=== PATIENT | male | born 1995 | race Hispanic/Latino ===

== ENCOUNTER 2018-12-27 20:03 | Emergency (ER) | payer SELFPAY ==
[2018-12-27] MEDS ORDERED: DIAZEPAM 5 MG TABLET ONE (20:42)
[2018-12-27] MEDS ORDERED: KETOROLAC 30 MG/ML INJ ONE (20:43)
[2018-12-27] MEDS ORDERED: HYDROCODONE/APAP 10/325 TAB ONE (20:44)
--- NOTE | 2018-12-27 21:00 | RAD REPORT ---
EXAM DESCRIPTION: Manju Macdonald (2 Views)12/27/2018 8:48 pm CLINICAL HISTORY: Cough COMPARISON: 2013 FINDINGS: The lungs appear clear of acute infiltrate. The heart is normal size IMPRESSION: No acute abnormalities displayed
--- NOTE | 2018-12-27 21:23 | ER ---
Nurse's Notes [facility] Name: Charlie Elena Age: 23 yrs Sex: Male : 1995 Arrival Date: 12/27/2018 Time: 20:06 Bed 15 Private MD: Diagnosis: Muscle spasm Presentation: 12/27 20:09 Presenting complaint: Patient states: I sneezed this morning and since then I have had la1 really bad back, chest, shoulder, and neck pain. Transition of care: patient was not received from another setting of care. Onset of symptoms was December 27, 2018. Risk Assessment: Do you want to hurt yourself or someone else? Patient reports no desire to harm self or others. Initial Sepsis Screen: Does the patient meet any 2 criteria? No. Patient's initial sepsis screen is negative. Does the patient have a suspected source of infection? No. Patient's initial sepsis screen is negative. Care prior to arrival: None. 20:09 Method Of Arrival: Ambulatory la1 20:09 Acuity: MARLYS 3 la1 Historical: - Allergies: 20:10 PENICILLINS; la1 - PMHx: 20:10 Herniated disc; la1 - Immunization history:: Adult Immunizations up to date. - Social history:: Smoking status: Patient/guardian denies using tobacco. - Ebola Screening: : No symptoms or risks identified at this time. Screenin:30 Abuse screen: Denies threats or abuse. Nutritional screening: No deficits noted. jb4 Tuberculosis screening: No symptoms or risk factors identified. Fall Risk None identified. Assessment: 20:30 General: Appears in no apparent distress. uncomfortable, Behavior is calm, cooperative, jb4 appropriate for age. Pain: Complains of pain in right shoulder. Pain does not radiate. Pain currently is 8 out of 10 on a pain scale. Neuro: Level of Consciousness is awake, alert, obeys commands, Oriented to person, place, time, situation. Cardiovascular: Patient's skin is warm and dry. Respiratory: Airway is patent Respiratory effort is even, unlabored, Respiratory pattern is regular, symmetrical. GI: No signs and/or symptoms were reported involving the gastrointestinal system. : No signs and/or symptoms were reported regarding the genitourinary system. EENT: No signs and/or symptoms were reported regarding the EENT system. Derm: Skin is intact, Skin is pink, warm \T\ dry. Musculoskeletal: Circulation, motion, and sensation intact. 21:30 Reassessment: Patient appears in no apparent distress at this time. Patient is alert, jb4 oriented x 3, equal unlabored respirations, skin warm/dry/pink. Patient states feeling better. Vital Signs: 20:10 BP 137 / 94; Pulse 81; Resp 16; Temp 98.5; Pulse Ox 98% on R/A; Weight 68.04 kg; Height la1 5 ft. 7 in. (170.18 cm); 21:30 BP 124 / 72; Pulse 76; Resp 16; Pulse Ox 98% on R/A; Pain 5/10; jb4 20:10 Body Mass Index 23.49 (68.04 kg, 170.18 cm) la1 ED Course: 20:06 Patient arrived in ED. es 20:10 Triage completed. la1 20:11 Arm band placed on left wrist. la1 20:20 Ryan Edouard PA is PHCP. [facility] 20:20 Brian Cazares MD is Attending Physician. [facility] 20:28 Juan Frazier RN is Primary Nurse. jb4 20:30 Patient has correct armband on for positive identification. Bed in low position. Call jb4 light in reach. Side rails up X 1. Pulse ox on. NIBP on. 20:30 No provider procedures requiring assistance completed. Patient did not have IV access jb4 during this emergency room visit. 20:47 Chest Pa And Lat (2 Views) XRAY In Process Unspecified. EDMS Administered Medications: 20:40 Drug: Ketorolac 60 mg Route: IM; Site: right gluteus; rr5 22:07 Follow up: Response: No adverse reaction; Pain is decreased jb4 20:41 Drug: Valium 5 mg Route: PO; rr5 22:07 Follow up: Response: No adverse reaction; Pain is decreased jb4 20:42 Drug: [place] 10 mg-325 mg 1 tabs Route: PO; rr5 22:07 Follow up: Response: No adverse reaction; Pain is decreased jb4 Outcome: 21:21 Discharge ordered by . jm 21:40 Discharged to home ambulatory, with family. jb4 21:40 Condition: stable 21:40 Discharge instructions given to patient, family, Instructed on discharge instructions, follow up and referral plans. medication usage, Demonstrated understanding of instructions, follow-up care, medications, Prescriptions given X 1. 22:08 Patient left the ED. jb4 Signatures: Dispatcher [employer] EDRyan Barrett PA PA jmm Salyer, Edna es Attema, Lee RN RN la1 Juan Frazier RN RN jb4 Refugio Bansal RN RN rr5
--- NOTE | 2018-12-27 21:23 | EDPHYS ---
Physician Documentation [facility] Name: Charlie Elena Age: 23 yrs Sex: Male : 1995 Arrival Date: 12/27/2018 Time: 20:06 Bed 15 Private MD: ED Physician Brian Cazares HPI: 12/27 20:22 This 23 yrs old Male presents to ER via Ambulatory with complaints of Back jmm Pain, Chest Pain, Shoulder Pain, Breathing Difficulty. 20:22 The patient presents with pain that is acute. Onset: The symptoms/episode jmm began/occurred acutely, today. The pain radiates to the anterior aspect of right upper chest and right breast. Associated signs and symptoms: Pertinent negatives: fever. The problem was sustained sneezing. This is a 23 year old male that presents to the ED with complaints of right sided back pain which developed after sneezing. patient states the paint radiates to his chest. . Historical: - Allergies: 20:10 PENICILLINS; la1 - PMHx: 20:10 Herniated disc; la1 - Immunization history:: Adult Immunizations up to date. - Social history:: Smoking status: Patient/guardian denies using tobacco. - Ebola Screening: : No symptoms or risks identified at this time. ROS: 20:22 Constitutional: Negative for fever, chills, and weight loss. jmm 20:22 Respiratory: Negative for shortness of breath, cough, wheezing, and pleuritic chest pain. 20:22 MS/Extremity: Negative for injury and deformity. 20:22 Cardiovascular: Positive for chest pain, of the anterior aspect of right upper chest. 20:22 Back: Positive for pain with movement. 20:22 All other systems are negative. Exam: 20:22 Head/Face: atraumatic. Eyes: EOMI, no conjunctival erythema appreciated ENT: Moist jmm Mucus Membranes Neck: Trachea midline, Supple Chest/axilla: Normal chest wall appearance and motion. Cardiovascular: Regular rate and rhythm. No edema appreciated Respiratory: Normal respirations, no respiratory distress appreciated 20:22 Constitutional: The patient appears in no acute distress, alert, awake. 20:22 Back: muscle spasm, is appreciated in the right scapular area. 20:22 Musculoskeletal/extremity: ROM: intact in all extremities. 20:22 Neuro: Orientation: is normal, Mentation: is normal, Memory: is normal, Gait: is steady. 20:22 Psych: Behavior/mood is pleasant, cooperative. Vital Signs: 20:10 BP 137 / 94; Pulse 81; Resp 16; Temp 98.5; Pulse Ox 98% on R/A; Weight 68.04 kg; Height la1 5 ft. 7 in. (170.18 cm); 21:30 BP 124 / 72; Pulse 76; Resp 16; Pulse Ox 98% on R/A; Pain 5/10; jb4 20:10 Body Mass Index 23.49 (68.04 kg, 170.18 cm) la1 MDM: 20:22 Patient medically screened. [facility] 21:09 Data reviewed: vital signs, nurses notes. [facility] 21:19 Data reviewed: lab test result(s), radiologic studies, plain films. Data interpreted: concepcion Pulse oximetry: on room air is 98 %. Counseling: I had a detailed discussion with the patient and/or guardian regarding: the historical points, exam findings, and any diagnostic results supporting the discharge/admit diagnosis, radiology results, to return to the emergency department if symptoms worsen or persist or if there are any questions or concerns that arise at home. Response to treatment: the patient's symptoms have markedly improved after treatment, and as a result, I will discharge patient. ED course: Symptoms appear due to muscle spasm. Patient is point tender. CXR normal. I do not suspect dissection. Patient advised to follow up with PCP and otherwise advised to return to the ED if symptoms worsen. Patient understood and agrees with the plan of care. . 12/27 20:23 Order name: Chest Pa And Lat (2 Views) XRAY; Complete Time: 21:03 [facility] Administered Medications: 20:40 Drug: Ketorolac 60 mg Route: IM; Site: right gluteus; rr5 22:07 Follow up: Response: No adverse reaction; Pain is decreased jb4 20:41 Drug: Valium 5 mg Route: PO; rr5 22:07 Follow up: Response: No adverse reaction; Pain is decreased jb4 20:42 Drug: Ola 10 mg-325 mg 1 tabs Route: PO; rr5 22:07 Follow up: Response: No adverse reaction; Pain is decreased jb4 Disposition: 12/28 07:11 Co-signature as Attending Physician, Brian Cazares MD I agree with the assessment and kelsi plan of care. Disposition: 12/27/18 21:21 Discharged to Home. Impression: Muscle spasm. - Condition is Stable. - Discharge Instructions: Spasticity. - Prescriptions for Zanaflex 4 mg Oral Tablet - take 1 tablet by ORAL route every 8 hours As needed; 20 tablet. - Medication Reconciliation Form, Thank You Letter, Antibiotic Education, Prescription Opioid Use form. - Follow up: Private Physician; When: 2 - 3 days; Reason: Recheck today's complaints, Continuance of care, Re-evaluation by your physician. Signatures: Dispatcher [employer] EDBrian Mendez MD MD cha Mickail, Joel, PA PA jmm Attema, Lee RN RN la1 Juan Frazier RN RN jb4 Refugio Bansal RN RN rr5 Corrections: (The following items were deleted from the chart) 12/27 22:08 21:21 12/27/2018 21:21 Discharged to Home. Impression: Muscle spasm. Condition is jb4 Stable. Forms are Medication Reconciliation Form, Thank You Letter, Antibiotic Education, Prescription Opioid Use. Follow up: Private Physician; When: 2 - 3 days; Reason: Recheck today's complaints, Continuance of care, Re-evaluation by your physician. cata
[2018-12-27 22:13] VITALS: TEMP 98.5; O2SAT 98
[2018-12-27 22:14] VITALS: BP 124/72
== END 2018-12-27 22:08 | disposition home or self-care (01) ==
LOC: ER 20:03
DX: M62.838 Other muscle spasm (principal); Z88.0 Allergy status to penicillin
CPT/HCPCS: 71046; 96372; 99284

== ENCOUNTER 2019-09-22 06:28 | Emergency (ER) | payer SELFPAY ==
[2019-09-22] MEDS ORDERED: DIAZEPAM 5 MG TABLET ONE (07:00)
[2019-09-22] MEDS ORDERED: KETOROLAC 30 MG/ML INJ ONE (07:00)
--- NOTE | 2019-09-22 08:32 | ER ---
Nurse's Notes [facility] Name: Charlie Elena Age: 24 yrs Sex: Male : 1995 Arrival Date: 09/22/2019 Time: 06:29 Bed 18 Private MD: Diagnosis: Muscle spasm Presentation: 09/22 06:37 Presenting complaint: Patient states: C/O neck pain radiating to his right shoulder and wh back that started this morning. Pt with Hx of Herniated disc from playing football. Transition of care: patient was not received from another setting of care. Onset of symptoms was September 22, 2019. Risk Assessment: Do you want to hurt yourself or someone else? Patient reports no desire to harm self or others. Initial Sepsis Screen: Does the patient meet any 2 criteria? No. Patient's initial sepsis screen is negative. Does the patient have a suspected source of infection? No. Patient's initial sepsis screen is negative. Care prior to arrival: None. 06:37 Method Of Arrival: Ambulatory 06:37 Acuity: MARLYS 4 Historical: - Allergies: 06:39 PENICILLINS; - Home Meds: 06:39 None [Active]; - PMHx: 06:39 Herniated disc; - PSHx: 06:39 None; - Immunization history:: Adult Immunizations up to date. - Social history:: Smoking status: Patient/guardian denies using tobacco. - Ebola Screening: : Patient negative for fever greater than or equal to 101.5 degrees Fahrenheit, and additional compatible Ebola Virus Disease symptoms Patient denies exposure to infectious person. Screenin:39 Abuse screen: Denies threats or abuse. Denies injuries from another. Nutritional screening: No deficits noted. Tuberculosis screening: No symptoms or risk factors identified. Fall Risk None identified. Assessment: 06:40 General: Appears in no apparent distress. Behavior is calm, cooperative, appropriate for age. Pain: Complains of pain in Rightside of Neck Pain radiates to Right shoulder blade and back Pain currently is 8 out of 10 on a pain scale. Quality of pain is described as shooting, Pain began 1 hour ago. Neuro: Level of Consciousness is awake, alert, obeys commands, Oriented to person, place, time, situation, Appropriate for age Rehabilitation Supervisor are equal bilaterally. Cardiovascular: Capillary refill < 3 seconds. Respiratory: Airway is patent Respiratory effort is even, unlabored, Respiratory pattern is regular, symmetrical. GI: Abdomen is flat, non-distended. : No signs and/or symptoms were reported regarding the genitourinary system. EENT: No signs and/or symptoms were reported regarding the EENT system. Derm: Skin is intact, is healthy with good turgor, Skin is pink, warm \T\ dry. normal. Musculoskeletal: Circulation, motion, and sensation intact. 07:27 Reassessment: Patient appears in no apparent distress at this time. No changes from tw2 previously documented assessment. Patient and/or family updated on plan of care and expected duration. Pain level reassessed. Patient is alert, oriented x 3, equal unlabored respirations, skin warm/dry/pink. 08:26 Reassessment: Patient appears in no apparent distress at this time. Patient and/or tw2 family updated on plan of care and expected duration. Pain level reassessed. Patient is alert, oriented x 3, equal unlabored respirations, skin warm/dry/pink. Patient states feeling better. 08:33 Reassessment: provider at bedside at this time. tw2 09:04 Reassessment: Patient appears in no apparent distress at this time. No changes from tw2 previously documented assessment. Patient and/or family updated on plan of care and expected duration. Pain level reassessed. Patient is alert, oriented x 3, equal unlabored respirations, skin warm/dry/pink. Patient states feeling better. Patient states symptoms have improved. Vital Signs: 06:44 BP 118 / 88; Pulse 72; Resp 18; Temp 97.8; Pulse Ox 98% on R/A; Weight 70.31 kg; Height 5 ft. 7 in. (170.18 cm); 07:27 BP 125 / 85; Pulse 64; Resp 17; Pulse Ox 99% on R/A; tw2 08:26 BP 117 / 68; Pulse 73; Resp 17; Pulse Ox 97% on R/A; tw2 06:44 Body Mass Index 24.28 (70.31 kg, 170.18 cm) ED Course: 06:29 Patient arrived in ED. ds1 06:30 Brian Whalen NP is PHCP. pm1 06:30 Ronald Lentz MD is Attending Physician. pm1 06:37 Daria Contreras is Primary Nurse. 06:38 Triage completed. 06:40 Patient has correct armband on for positive identification. Bed in low position. Call light in reach. Side rails up X 1. Pulse ox on. NIBP on. 06:40 Arm band placed on left wrist. 09:03 No provider procedures requiring assistance completed. Patient did not have IV access tw2 during this emergency room visit. Administered Medications: 07:05 Drug: Valium 5 mg Route: PO; tw2 08:34 Follow up: Response: No adverse reaction tw2 07:07 Drug: TORadol 60 mg {Note: 30 mg Left deltoid, 30 mg Right deltoid.} Route: IM; Site: tw2 affected area; 08:34 Follow up: Response: No adverse reaction; Pain is decreased tw2 08:40 Drug: predniSONE 60 mg Route: PO; tw2 09:03 Follow up: Response: No adverse reaction tw2 Outcome: 08:32 Discharge ordered by MD. pm1 09:03 Discharged to home ambulatory, with significant other. tw2 09:03 Condition: stable 09:03 Discharge instructions given to patient, significant other, Instructed on discharge instructions, follow up and referral plans. no drinking with medication, no driving heavy equipment, medication usage, Demonstrated understanding of instructions, follow-up care, medications, Prescriptions given X 2. 09:04 Patient left the ED. tw2 Signatures: Reina Fernandes ds1 Brian Whalen NP SUPERVISOR [employer]POINTMENTS pm1 Melani Rojas RN RN tw2 Daria Contreras
--- NOTE | 2019-09-22 08:32 | EDPHYS ---
Physician Documentation [facility] Name: Charlie Elena Age: 24 yrs Sex: Male : 1995 Arrival Date: 09/22/2019 Time: 06:29 Bed 18 Private MD: ED Physician Ronald Lentz HPI: 09/22 06:40 This 24 yrs old Male presents to ER via Ambulatory with complaints of Arm pm1 Pain, Neck Pain. 06:48 The patient or guardian complains of pain. The symptoms are located on the right pm1 trapezius. Onset: The symptoms/episode began/occurred this morning. Context: The problem was sustained at home, The neck injury/problem resulted from unknown, woke up with pain to right side of neck. Associated signs and symptoms: Pertinent negatives: fever, headache, numbness, tingling, weakness. Modifying factors: The symptoms are alleviated by remaining still, the symptoms are aggravated by movement, right arm. Severity of symptoms: in the emergency department the symptoms are unchanged. The patient has experienced similar episodes in the past, a few times. History of herniated disk from football in high school. Historical: - Allergies: 06:39 PENICILLINS; wh - Home Meds: 06:39 None [Active]; - PMHx: 06:39 Herniated disc; - PSHx: 06:39 None; - Immunization history:: Adult Immunizations up to date. - Social history:: Smoking status: Patient/guardian denies using tobacco. - Ebola Screening: : Patient negative for fever greater than or equal to 101.5 degrees Fahrenheit, and additional compatible Ebola Virus Disease symptoms Patient denies exposure to infectious person. ROS: 06:48 Constitutional: Negative for fever, chills, and weight loss, Eyes: Negative for injury, pm1 pain, redness, and discharge, ENT: Negative for injury, pain, and discharge, Cardiovascular: Negative for chest pain, palpitations, and edema. 06:48 Respiratory: Negative for shortness of breath, cough, wheezing, and pleuritic chest pain, Abdomen/GI: Negative for abdominal pain, nausea, vomiting, diarrhea, and constipation, Back: Negative for injury and pain, MS/Extremity: Negative for injury and deformity, Skin: Negative for injury, rash, and discoloration, Neuro: Negative for headache, weakness, numbness, tingling, and seizure. 06:48 Neck: Positive for pain with movement, Negative for bony tenderness. Exam: 06:48 Constitutional: This is a well developed, well nourished patient who is awake, alert, pm1 and in no acute distress. Head/Face: Normocephalic, atraumatic. 06:48 Chest/axilla: Normal chest wall appearance and motion. Nontender with no deformity. No lesions are appreciated. Cardiovascular: Regular rate and rhythm with a normal S1 and S2. No gallops, murmurs, or rubs. Normal PMI, no JVD. No pulse deficits. Respiratory: Lungs have equal breath sounds bilaterally, clear to auscultation and percussion. No rales, rhonchi or wheezes noted. No increased work of breathing, no retractions or nasal flaring. Back: No spinal tenderness. No costovertebral tenderness. Full range of motion. Skin: Warm, dry with normal turgor. Normal color with no rashes, no lesions, and no evidence of cellulitis. MS/ Extremity: Pulses equal, no cyanosis. Neurovascular intact. Full, normal range of motion. 06:48 Neck: External neck: tenderness, of the right trapezius, muscle spasm, C-spine: vertebral tenderness, is not appreciated, ROM/movement: Meningeal signs: Kernig's sign is negative, Brudzinski's sign is negative, nuchal rigidity, is not appreciated, pain to right trapezius reproduced with palpation and movement of right arm. 06:48 Neuro: Orientation: is normal, Motor: moves all fours, strength is normal, strength is 5/5 in all extremities, Sensation: is normal, no obvious gross deficits. Vital Signs: 06:44 BP 118 / 88; Pulse 72; Resp 18; Temp 97.8; Pulse Ox 98% on R/A; Weight 70.31 kg; Height wh 5 ft. 7 in. (170.18 cm); 07:27 BP 125 / 85; Pulse 64; Resp 17; Pulse Ox 99% on R/A; tw2 08:26 BP 117 / 68; Pulse 73; Resp 17; Pulse Ox 97% on R/A; tw2 06:44 Body Mass Index 24.28 (70.31 kg, 170.18 cm) wh MDM: 06:32 Patient medically screened. pm1 06:48 Data reviewed: vital signs. Data interpreted: Pulse oximetry: on room air is 98 %. pm1 Interpretation: normal. 08:31 Counseling: I had a detailed discussion with the patient and/or guardian regarding: the pm1 historical points, exam findings, and any diagnostic results supporting the discharge/admit diagnosis, the need for outpatient follow up, to return to the emergency department if symptoms worsen or persist or if there are any questions or concerns that arise at home. Administered Medications: 07:05 Drug: Valium 5 mg Route: PO; tw2 08:34 Follow up: Response: No adverse reaction tw2 07:07 Drug: TORadol 60 mg {Note: 30 mg Left deltoid, 30 mg Right deltoid.} Route: IM; Site: tw2 affected area; 08:34 Follow up: Response: No adverse reaction; Pain is decreased tw2 08:40 Drug: predniSONE 60 mg Route: PO; tw2 09:03 Follow up: Response: No adverse reaction tw2 Disposition: 09/22/19 08:32 Discharged to Home. Impression: Muscle spasm. - Condition is Stable. - Discharge Instructions: Muscle Cramps and Spasms. - Prescriptions for Valium 2 mg Oral Tablet - take 1 tablet by ORAL route every 8 hours As needed; 10 tablet. Medrol (Pastor) 4 mg Oral Tablets, Dose Pack - take 1 tablet by ORAL route as directed - follow package instructions; 1 packet. - Medication Reconciliation Form, Thank You Letter, Antibiotic Education, Prescription Opioid Use, Work release form form. - Follow up: Emergency Department; When: As needed; Reason: Worsening of condition. Follow up: Private Physician; When: 2 - 3 days; Reason: Recheck today's complaints, Continuance of care, Re-evaluation by your physician. - Problem is new. - Symptoms have improved. Addendum: 09/24/2019 15:34 Co-signature as Attending Physician, Ronald Lentz MD I agree with the assessment and t w4 plan of care. Signatures: Brian Whalen, PLANT ELECTRICIAN PLANT ELECTRICIAN pm1 Melani Rojas, RN RN tw2 Daria Contreras Terrence, MD MD tw4 Corrections: (The following items were deleted from the chart) 09/22 08:32 08:32 09/22/2019 08:32 Discharged to Home. Impression: Strain of muscle, fascia and pm1 tendon at neck level. Condition is Stable. Forms are Work release form, Medication Reconciliation Form, Thank You Letter, Antibiotic Education, Prescription Opioid Use. Follow up: Emergency Department; When: As needed; Reason: Worsening of condition. Follow up: Private Physician; When: 2 - 3 days; Reason: Recheck today's complaints, Continuance of care, Re-evaluation by your physician. Problem is new. Symptoms have improved. pm1 09:04 08:32 09/22/2019 08:32 Discharged to Home. Impression: Muscle spasm. Condition is tw2 Stable. Forms are Work release form, Medication Reconciliation Form, Thank You Letter, Antibiotic Education, Prescription Opioid Use. Follow up: Emergency Department; When: As needed; Reason: Worsening of condition. Follow up: Private Physician; When: 2 - 3 days; Reason: Recheck today's complaints, Continuance of care, Re-evaluation by your physician. Problem is new. Symptoms have improved. pm1
[2019-09-22] MEDS ORDERED: predniSONE 20 MG TAB ONE (08:37)
[2019-09-22 09:11] VITALS: TEMP 97.8
[2019-09-22 09:14] VITALS: BP 117/68; O2SAT 97
== END 2019-09-22 09:04 | disposition home or self-care (01) ==
LOC: ER 06:28
DX: M62.838 Other muscle spasm (principal); Z88.0 Allergy status to penicillin
CPT/HCPCS: 96372; 99283; J7512

== ENCOUNTER 2020-02-14 01:41 | Emergency (ER) | payer SELFPAY ==
--- OUTSIDE RECORDS SUMMARY | 2020-02-14 01:43 | XMS REPORT ---
:1995 [facility] Address [address] [place] [address] Dr. Wright [address] [place] [id number] Care Team Providers Name Role Phone Unavailable Unavailable Unavailable Problems This patient has no known problems. Allergies, Adverse Reactions, Alerts This patient has no known allergies or adverse reactions. Medications This patient has no known medications.
--- NOTE | 2020-02-14 02:30 | EDPHYS ---
Physician Documentation [facility] Name: Charlie Elena Age: 25 yrs Sex: Male : 1995 Arrival Date: 02/14/2020 Time: 01:42 Bed 5 Private MD: ED Physician Ronald Lentz HPI: 02/13 04:21 This 25 yrs old Male presents to ER via Ambulatory with complaints of Toe tw4 Injury. 04:21 The patient presents with pain, that is acute. The complaints affect the left foot. tw4 Context: The problem was sustained outdoors, resulted from the patient kicking, a solid object, the patient can partially bear weight, must have assistance. Onset: The symptoms/episode began/occurred today. Modifying factors: The symptoms are alleviated by nothing, the symptoms are aggravated by weight bearing, movement. Associated signs and symptoms: The patient has no apparent associated signs or symptoms. Severity of symptoms: At their worst the symptoms were moderate, in the emergency department the symptoms are unchanged. The patient has not experienced similar symptoms in the past. Historical: - Allergies: 01:52 PENICILLINS; sg 01:52 Promethazine; sg - PMHx: 01:52 Herniated disc; sg - PSHx: 01:52 None; sg - Immunization history:: Adult Immunizations not up to date. - Social history:: Smoking status: Patient denies any tobacco usage or history of. ROS: 04:21 MS/extremity: Positive for injury or acute deformity, contusion. tw4 04:21 Constitutional: Negative for fever, chills, and weight loss, Eyes: Negative for injury, pain, redness, and discharge, Cardiovascular: Negative for chest pain, palpitations, and edema, Respiratory: Negative for shortness of breath, cough, wheezing, and pleuritic chest pain, Abdomen/GI: Negative for abdominal pain, nausea, vomiting, diarrhea, and constipation, Back: Negative for injury and pain, Skin: Negative for injury, rash, and discoloration, Neuro: Negative for headache, weakness, numbness, tingling, and seizure. 04:21 MS/extremity: Positive for contusion. Exam: 04:21 Constitutional: This is a well developed, well nourished patient who is awake, alert, tw4 and in no acute distress. Head/Face: Normocephalic, atraumatic. Chest/axilla: Normal chest wall appearance and motion. Nontender with no deformity. No lesions are appreciated. Cardiovascular: Regular rate and rhythm with a normal S1 and S2. No gallops, murmurs, or rubs. Normal PMI, no JVD. No pulse deficits. Respiratory: Lungs have equal breath sounds bilaterally, clear to auscultation and percussion. No rales, rhonchi or wheezes noted. No increased work of breathing, no retractions or nasal flaring. Abdomen/GI: Soft, non-tender, with normal bowel sounds. No distension or tympany. No guarding or rebound. No evidence of tenderness throughout. Neuro: Awake and alert, GCS 15, oriented to person, place, time, and situation. Cranial nerves II-XII grossly intact. Motor strength 5/5 in all extremities. Sensory grossly intact. Cerebellar exam normal. Normal gait. Vital Signs: 01:56 BP 134 / 70; Pulse 87; Resp 17; Pulse Ox 100% ; Pain 10/10; sg 02:40 BP 132 / 66; Pulse 88; Resp 18; Pulse Ox 100% on R/A; sg MDM: 01:57 Patient medically screened. tw4 04:22 Differential diagnosis: fracture, sprain. Data reviewed: vital signs, nurses notes. tw4 Data interpreted: Pulse oximetry: Interpretation: normal. Counseling: I had a detailed discussion with the patient and/or guardian regarding: the historical points, exam findings, and any diagnostic results supporting the discharge/admit diagnosis. Medication response: norco. Response to treatment: the patient's symptoms have markedly improved after treatment, and as a result, I will discharge patient. Special discussion: I discussed with the patient/guardian in detail that at this point there is no indication for admission to the hospital. It is understood, however, that if the symptoms persist or worsen the patient needs to return immediately for re-evaluation. 02/13 01:58 Order name: Foot Right 3 View XRAY tw4 Administered Medications: 02:42 Drug: [place] 5 mg-325 mg 1 tabs Route: PO; sg 02:47 Follow up: Response: No adverse reaction; Medication administered at discharge. sg Disposition: 04:29 Chart complete. tw4 Disposition: 02/14/20 02:29 Discharged to Home. Impression: Contusion of left lesser toe(s) without damage to nail. - Condition is Stable. - Discharge Instructions: Foot Contusion. - Prescriptions for Ibuprofen 800 mg Oral Tablet - take 1 tablet by ORAL route every 8 hours As needed take with food; 30 tablet. Tylenol- Codeine #3 300-30 mg Oral Tablet - take 2 tablet by ORAL route every 6 hours As needed; 6 tablet. - Work release form, Medication Reconciliation Form, Thank You Letter, Antibiotic Education, Prescription Opioid Use form. - Follow up: Private Physician; When: Upon discharge from the Emergency Department; Reason: Recheck today's complaints, Continuance of care, Re-evaluation by your physician. - Problem is new. - Symptoms have improved. Signatures: Dispatcher [employer] EDMS Abdiel Raymond RN RN Ronald Mcguire MD MD tw4 Corrections: (The following items were deleted from the chart) 02:44 02:29 02/14/2020 02:29 Discharged to Home. Impression: Contusion of left lesser toe(s) sg without damage to nail. Condition is Stable. Forms are Medication Reconciliation Form, Thank You Letter, Antibiotic Education, Prescription Opioid Use. Follow up: Private Physician; When: Upon discharge from the Emergency Department; Reason: Recheck today's complaints, Continuance of care, Re-evaluation by your physician. Problem is new. Symptoms have improved. tw4
--- NOTE | 2020-02-14 02:30 | ER ---
Nurse's Notes [facility] Name: Charlie Elena Age: 25 yrs Sex: Male : 1995 Arrival Date: 02/14/2020 Time: 01:42 Bed 5 Private MD: Diagnosis: Contusion of left lesser toe(s) without damage to nail Presentation: 02/13 01:56 Chief complaint: Patient states: I was at the park earlier today when I kicked a pole, sg now I have a pain in my left second toe, reports pain is a 10/10. Coronavirus screen: The patient has NOT traveled to a country currently being monitored by the [facility] within the last 14 days. The patient has NOT had contact with any known and/or suspected case of coronavirus. Ebola Screen: Patient negative for fever greater than or equal to 101.5 degrees Fahrenheit, and additional compatible Ebola Virus Disease symptoms Patient denies exposure to infectious person. Patient denies travel to an Ebola-affected area in the 21 days before illness onset. No symptoms or risks identified at this time. Initial Sepsis Screen: Does the patient meet any 2 criteria? No. Patient's initial sepsis screen is negative. Does the patient have a suspected source of infection? No. Patient's initial sepsis screen is negative. Risk Assessment: Do you want to hurt yourself or someone else? Patient reports no desire to harm self or others. 01:56 Method Of Arrival: Ambulatory 01:56 Acuity: MARLYS 5 sg Triage Assessment: 01:58 General: Appears in no apparent distress. well groomed, well developed, well nourished, sg Behavior is calm, cooperative, appropriate for age. Pain: Complains of pain in Left second toenail Quality of pain is described as aching, throbbing. EENT: No signs and/or symptoms were reported regarding the EENT system. Neuro: Level of Consciousness is awake, alert, obeys commands, Oriented to person, place, time, Facial symmetry appears normal. Cardiovascular: Patient's skin is warm and dry. Chest pain is denied. Respiratory: Airway is patent Respiratory effort is even, unlabored, Respiratory pattern is regular, symmetrical. GI: Abdomen is flat, non-distended, Reports normal bowel habits, tolerance of fluids, tolerance of food. : No signs and/or symptoms were reported regarding the genitourinary system. Derm: Skin is pink, warm \T\ dry. Musculoskeletal: Circulation, motion, and sensation intact. Range of motion: intact in all extremities. Historical: - Allergies: 01:52 PENICILLINS; sg 01:52 Promethazine; sg - PMHx: 01:52 Herniated disc; sg - PSHx: 01:52 None; sg - Immunization history:: Adult Immunizations not up to date. - Social history:: Smoking status: Patient denies any tobacco usage or history of. Screenin:56 Abuse screen: Denies threats or abuse. Denies injuries from another. Nutritional sg screening: No deficits noted. Tuberculosis screening: No symptoms or risk factors identified. Never had TB. Fall Risk None identified. Assessment: 02:30 Reassessment: Patient appears in no apparent distress at this time. Patient and/or sg family updated on plan of care and expected duration. Pain level reassessed. Patient is alert, oriented x 3, equal unlabored respirations, skin warm/dry/pink. 02:38 Reassessment: Patient appears in no apparent distress at this time. pt family at nurses sg station requesting pain medication for pt, input order for [place], pt medicated see EMAR. 02:42 Reassessment: Patient appears in no apparent distress at this time. pt observed rocking sg back and forth on the bed holding his foot at this time, pt states its a 10/10, pt has been medicated. at bedside updating pt on results and plans for discharge at this time. 02:45 Reassessment: Patient appears in no apparent distress at this time. pt ambulatory to main nurses station requesting discharge papers. Vital Signs: 01:56 BP 134 / 70; Pulse 87; Resp 17; Pulse Ox 100% ; Pain 10/10; sg 02:40 BP 132 / 66; Pulse 88; Resp 18; Pulse Ox 100% on R/A; sg ED Course: 01:42 Patient arrived in ED. cl3 01:51 Abdiel Raymond, RN is Primary Nurse. sg 01:52 Arm band placed on. sg 01:52 Patient has correct armband on for positive identification. Bed in low position. Call sg light in reach. Side rails up X2. 01:52 Pulse ox on. NIBP on. sg 01:57 Ronald Lentz MD is Attending Physician. tw4 01:58 Triage completed. sg 02:30 Awaiting for x-ray. sg 02:30 No provider procedures requiring assistance completed. Patient did not have IV access sg during this emergency room visit. 07:19 Foot Right 3 View XRAY In Process Unspecified. EDMS Administered Medications: 02:42 Drug: [place] 5 mg-325 mg 1 tabs Route: PO; sg 02:47 Follow up: Response: No adverse reaction; Medication administered at discharge. sg Outcome: 02:29 Discharge ordered by . tw4 02:43 Discharged to home ambulatory, with family. sg 02:43 Condition: good 02:43 Discharge instructions given to patient, family, Instructed on discharge instructions, follow up and referral plans. no drinking with medication, no driving heavy equipment, medication usage, safety practices, Demonstrated understanding of instructions, follow-up care, medications, Prescriptions given X 2. 02:44 Patient left the ED. sg Signatures: Dispatcher [employer] EDMS Abdiel Raymond RN RN Ronald Lentz MD MD tw4 [place] cl3
[2020-02-14] MEDS ORDERED: HYDROCODONE/APAP 5/325 MG TAB ONE (02:44)
[2020-02-14 02:52] VITALS: BP 134/70; O2SAT 100
--- NOTE | 2020-02-14 08:40 | RAD REPORT ---
EXAM DESCRIPTION: RAD - Foot Right 3 View - 02/14/2020 7:18 am CLINICAL HISTORY: PAIN COMPARISON: No comparisons FINDINGS: No fracture or dislocation seen.
== END 2020-02-14 02:44 | disposition home or self-care (01) ==
LOC: ER 01:41
DX: S90.122A Contusion of left lesser toe(s) without damage to nail, initial encounter (principal); W22.09XA Striking against other stationary object, initial encounter; Y93.01 Activity, walking, marching and hiking; Y92.89 Other specified places as the place of occurrence of the external cause; Z88.0 Allergy status to penicillin; Z88.8 Allergy status to other drugs, medicaments and biological substances
CPT/HCPCS: 99284

== ENCOUNTER 2023-01-22 22:44 | Emergency (ER) | payer SELFPAY ==
--- OUTSIDE RECORDS SUMMARY | 2023-01-22 22:47 | XMS REPORT | Continuity of Care Document ---
:1995 Author Organization [facility] t Address [address] [place] [address] Dr. Wright [address] [place] [id number] Care Team Providers Name Role Phone Unavailable Unavailable Unavailable Problems This patient has no known problems. Allergies, Adverse Reactions, Alerts This patient has no known allergies or adverse reactions. Medications This patient has no known medications. Procedures This patient has no known procedures. Results This patient has no known results.
[2023-01-22 23:25] LABS: Absolute Lymphocytes (CBC) 2.7 K/uL (0.7-4.9); Hematocrit 44.2 % (39.6-49.0); Lymphocytes % 26.8 % (15.3-44.8); MCV 86.9 fL (80-100); MPV 8.6 fL (7.6-11.3); RBC Red Blood Cell Count 5.09 M/uL (4.33-5.43)
[2023-01-22] MEDS ORDERED: NA CHLORIDE 0.9% 1,000 ML ONE (23:26)
[2023-01-22 23:32] LABS: Potassium 3.5 mmol/L (3.5-5.1)
[2023-01-23] MEDS ORDERED: IBUPROFEN 400 MG TAB ONE (00:24)
[2023-01-23] MEDS ORDERED: HYDROCODONE/APAP 10/325 TAB ONE (00:24)
--- NOTE | 2023-01-23 00:41 | EDPHYS ---
Physician Documentation [facility] Name: Charlie Elena Age: 27 yrs Sex: Male : 1995 Arrival Date: 01/22/2023 Time: 22:45 Bed 4 Private MD: ED Physician Harpreet Khan HPI: 01/22 22:55 This 27 yrs old Male presents to ER via EMS with complaints of panic attack. rn 22:55 The patient presents to the emergency department with anxiety. Onset: The rn symptoms/episode began/occurred today. Associated signs and symptoms: Pertinent positives; anxiety, Pertinent negatives: fever, hallucinations, homicidal ideation, substance abuse, suicide ideation. Severity of symptoms: At their worst the symptoms were moderate in the emergency department the symptoms have improved. The patient has experienced similar episodes in the past. The patient has not recently seen a physician. Pt reports having severe anxiety, over multiple factors, has had anxiety and panic attacks before. Denies drug use/ETOH, never prescribed meds for anxiety. No chest pain. Reports was really stressed out and was hitting himself on the head with fist and hit head on bench/sign. No LOC. Feels better already without intervention but still anxious. Denies suicidal or homicidal ideations. . Historical: - Allergies: 22:47 PENICILLINS; as6 22:47 Promethazine; as6 - PMHx: 22:47 Herniated disc; as6 - PSHx: 22:47 Appendectomy; elbow; as6 - Immunization history:: Client reports having NOT received the Covid vaccine. - Social history:: Smoking status: Patient denies any tobacco usage or history of. - Family history:: not pertinent. - Hospitalizations: : No recent hospitalization is reported. - History obtained from: EMS. ROS: 22:55 Constitutional: Negative for fever, chills, and weight loss, Eyes: Negative for injury, rn pain, redness, and discharge, Neck: Negative for injury, pain, and swelling, Cardiovascular: Negative for chest pain, palpitations, and edema, Respiratory: Negative for shortness of breath, cough, wheezing, and pleuritic chest pain, Abdomen/GI: Negative for abdominal pain, nausea, vomiting, diarrhea, and constipation, Back: Negative for injury and pain, MS/Extremity: Negative for injury and deformity, Skin: Negative for injury, rash, and discoloration, Neuro: + headache and tingling "all over" Exam: 22:55 Constitutional: This is a well developed, well nourished patient who is awake, alert, rn and in no acute distress. Head/Face: + frontal hematoma and contusion, no depression Eyes: Pupils equal round and reactive to light, extra-ocular motions intact. Lids and lashes normal. Conjunctiva and sclera are non-icteric and not injected. Cornea within normal limits. Periorbital areas with no swelling, redness, or edema. ENT: NO oral trauma noted Neck: NO midline cervical tenderness Chest/axilla: Normal chest wall appearance and motion. Nontender with no deformity. No lesions are appreciated. Cardiovascular: Regular rate and rhythm. No pulse deficits. Respiratory: No increased work of breathing, no retractions or nasal flaring. Abdomen/GI: Soft, non-tender Back: No spinal tenderness. No costovertebral tenderness. Full range of motion. Skin: Warm, dry MS/ Extremity: Pulses equal, no cyanosis. Neurovascular intact. Full, normal range of motion. Equal circumference. Neuro: Awake and alert, GCS 15, oriented to person, place, time, and situation. Cranial nerves II-XII grossly intact. Motor strength 5/5 in all extremities. Sensory grossly intact. 01/23 00:15 ECG was reviewed by the Attending Physician. rn Vital Signs: 01/22 22:45 BP 144 / 104; Pulse 81; Resp 12 S; Temp 98.4(O); Pulse Ox 97% on R/A; Weight 72.57 kg as6 (R); Height 5 ft. 7 in. (170.18 cm) (R); Pain 6/10; 23:36 Pulse 101; Resp 30; Pulse Ox 100% ; tw5 23:56 BP 144 / 101; Pulse 69; Resp 12; Pulse Ox 97% on R/A; tw5 01/23 00:54 BP 137 / 93; Pulse 73; Resp 16; Pulse Ox 99% on R/A; kd3 01/22 22:45 Body Mass Index 25.06 (72.57 kg, 170.18 cm) as6 MDM: 01/22 22:46 Patient medically screened. rn 23:09 Independent interpretation of the following test(s) in the Emergency Department CT rn Scan: My interpretation is CT head images negative for obvious bleed or fracture. 01/23 00:10 Differential diagnosis: depression, anxiety, panic attack, hyperventilation, stress rn reaction, scalp contusion, intracranial injury, neck strain/sprain. Data reviewed: vital signs, nurses notes, lab test result(s), EKG, radiologic studies, CT scan. Care significantly affected by the following chronic conditions: anxiety and depression. Care significantly affected by the following Social Determinants of Health: Problems related to primary support group. Counseling: I had a detailed discussion with the patient and/or guardian regarding: the historical points, exam findings, and any diagnostic results supporting the discharge/admit diagnosis, lab results, radiology results, the need for outpatient follow up, to return to the emergency department if symptoms worsen or persist or if there are any questions or concerns that arise at home. Response to treatment: the patient's symptoms have mildly improved after treatment. 00:15 Independent interpretation of the following test(s) in the Emergency Department EKG: rn See my EKG interpretation above. 00:40 Special discussion: Based on the patient's history, exam and DX evaluation, there is no rn indication for emergent intervention or inpatient TX. It is understood by the patient/guardian that if the SXs persist or worsen they need to return immediately for re-evaluation. I discussed with the patient/guardian in detail that at this point there is no indication for admission to the hospital. It is understood, however, that if the symptoms persist or worsen the patient needs to return immediately for re-evaluation. 01/22 22:47 Order name: CBC with Diff rn 01/22 22:47 Order name: Basic Metabolic Panel rn 01/22 22:47 Order name: Urine Drug Screen rn 01/22 22:47 Order name: ETOH Level rn 01/22 23:28 Order name: CBC with Automated Diff; Complete Time: 00:08 EDMS 01/22 23:32 Order name: Basic Metabolic Panel; Complete Time: 00:08 EDPA 01/22 22:47 Order name: CT Head C Spine rn 01/22 22:47 Order name: EKG; Complete Time: 22:48 rn 01/22 22:47 Order name: EKG - Nurse/Tech; Complete Time: 23:24 rn 01/22 23:38 Order name: Alcohol Serum/Plasma; Complete Time: 00:08 EDMS 01/22 22:47 Order name: IV Start; Complete Time: 22:59 rn 01/22 22:47 Order name: Cardiac monitoring; Complete Time: 22:48 rn 01/22 22:47 Order name: O2 Sat Monitoring; Complete Time: 22:48 rn EC:15 Rate is 74 beats/min. Rhythm is regular. QRS [place] is Normal. MI interval is normal. QRS rn interval is normal. QT interval is normal. No Q waves. T waves are Normal. No ST changes noted. Clinical impression: Normal ECG. Interpreted by me. Reviewed by me. Administered Medications: 01/22 23:24 Drug: NS 0.9% 1000 ml Route: IV; Rate: 1 bolus; Site: right antecubital; tw01/23 00:55 Follow up: IV Status: Completed infusion; IV Intake: 1000ml kd3 00:18 CANCELLED (Duplicate Order): morphine 2 mg IVP once over 4 mins rn 00:22 Drug: [place] (HYDROcodone-acetaminophen) 10 mg-325 mg 1 tabs Route: PO; tw 00:55 Follow up: Response: No adverse reaction; Pain is decreased kd3 00:22 Drug: Motrin (ibuprofen) 800 mg Route: PO; tw 00:55 Follow up: Response: No adverse reaction kd3 Disposition Summary: 01/23/23 00:41 Discharge Ordered Location: Home rn Problem: an acute exacerbation rn Symptoms: have improved rn Condition: Stable rn Diagnosis - Anxiety disorder, unspecified rn - Unspecified injury of head, initial encounter rn - Hyperventilation rn Followup: rn - With: Private Physician - When: As needed - Reason: Recheck today's complaints, Re-evaluation by your physician Discharge Instructions: - Discharge Summary Sheet rn - Panic Attack rn - Head Injury, Adult rn - Generalized Anxiety Disorder, Adult rn - Managing Anxiety, Adult rn Forms: - Medication Reconciliation Form rn - Thank You Letter rn - 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 rn rn
--- NOTE | 2023-01-23 00:41 | ER ---
Nurse's Notes [facility] Name: Charlie Elena Age: 27 yrs Sex: Male : 1995 Arrival Date: 01/22/2023 Time: 22:45 Bed 4 Private MD: Diagnosis: Anxiety disorder, unspecified;Unspecified injury of head, initial encounter;Hyperventilation Presentation: 01/22 22:45 Chief complaint: EMS states: called out for panic attack. Coronavirus screen: At this as6 time, the client does not indicate any symptoms associated with coronavirus-19. Ebola Screen: No symptoms or risks identified at this time. Initial Sepsis Screen: Does the patient meet any 2 criteria? No. Patient's initial sepsis screen is negative. Does the patient have a suspected source of infection? No. Patient's initial sepsis screen is negative. Risk Assessment: Do you want to hurt yourself or someone else? Patient reports no desire to harm self or others. Onset of symptoms was January 22, 2023. 22:45 Method Of Arrival: EMS as6 22:45 Acuity: MARLYS 3 as6 Triage Assessment: 23:55 General: Appears in no apparent distress. tw5 Historical: - Allergies: 22:47 PENICILLINS; as6 22:47 Promethazine; as6 - PMHx: 22:47 Herniated disc; as6 - PSHx: 22:47 Appendectomy; elbow; as6 - Immunization history:: Client reports having NOT received the Covid vaccine. - Social history:: Smoking status: Patient denies any tobacco usage or history of. - Family history:: not pertinent. - Hospitalizations: : No recent hospitalization is reported. - History obtained from: EMS. Screenin:47 [facility] ED Fall Risk Assessment (Adult) Score/Fall Risk Level 0 - 2 = Low Risk. Abuse as6 screen: Denies threats or abuse. Denies injuries from another. Nutritional screening: No deficits noted. Tuberculosis screening: No symptoms or risk factors identified. Assessment: 23:00 General: Reports "I have been going through some stuff lately and I have just not been tw5 handling it very well. My head is killing me now. Probably because I was first banging my head against a sign post, then against a bench. I started screaming and I felt the panic attack come on and it just felt way worse then the ones I used to get in high school." It was discussed with patient alternative coping mechanism such as boxing or works out rather than self harm. Pain: Complains of pain in forehead Pain currently is 7 out of 10 on a pain scale. Neuro: Level of Consciousness is awake, alert, obeys commands, Oriented to person, place, time, situation. Respiratory: Airway is patent Trachea midline Respiratory effort is even, unlabored. Derm: Bruising that is bright red. 23:36 General: Patient seen breathing at 40 bpm. Crying. He states " I am trying to calm tw5 down, I am trying." Patient was instructed to slow down his breathing and work on relaxing his muscles.. Respiratory: Respiratory pattern is hyperventilation. 23:36 General: Reports "My face is going numb.". tw5 23:42 General: Behavior is anxious, crying, Reports. tw5 23:50 General: and mother at the bedside. tw5 Vital Signs: 22:45 BP 144 / 104; Pulse 81; Resp 12 S; Temp 98.4(O); Pulse Ox 97% on R/A; Weight 72.57 kg as6 (R); Height 5 ft. 7 in. (170.18 cm) (R); Pain 6/10; 23:36 Pulse 101; Resp 30; Pulse Ox 100% ; tw5 23:56 BP 144 / 101; Pulse 69; Resp 12; Pulse Ox 97% on R/A; tw5 01/23 00:54 BP 137 / 93; Pulse 73; Resp 16; Pulse Ox 99% on R/A; kd3 01/22 22:45 Body Mass Index 25.06 (72.57 kg, 170.18 cm) as6 ED Course: 01/22 22:45 Patient arrived in ED. as6 22:46 Harpreet Khan MD is Attending Physician. rn 22:47 Triage completed. as6 22:47 Arm band placed on. as6 22:47 Bed in low position. Call light in reach. Side rails up X2. Client placed on continuous as6 cardiac and pulse oximetry monitoring. NIBP monitoring applied. 22:50 Tracy Cleaning is Primary Nurse. tw5 22:59 Basic Metabolic Panel Sent. :59 CBC with Diff Sent. tw 22:59 Initial lab(s) drawn, by me, sent to lab. Inserted saline lock: 20 gauge in right tw5 antecubital area, using aseptic technique. Blood collected. 23:24 ETOH Level Sent. tw5 23:55 No provider procedures requiring assistance completed. tw5 01/23 00:54 Inserted IV discontinued, intact, bleeding controlled, No redness/swelling at site. kd3 Pressure dressing applied. Administered Medications: 01/22 23:24 Drug: NS 0.9% 1000 ml Route: IV; Rate: 1 bolus; Site: right antecubital; tw5 01/23 00:55 Follow up: IV Status: Completed infusion; IV Intake: 1000ml kd3 00:18 CANCELLED (Duplicate Order): morphine 2 mg IVP once over 4 mins rn 00:22 Drug: Hancock (HYDROcodone-acetaminophen) 10 mg-325 mg 1 tabs Route: PO; tw:55 Follow up: Response: No adverse reaction; Pain is decreased kd3 00:22 Drug: Motrin (ibuprofen) 800 mg Route: PO; tw:55 Follow up: Response: No adverse reaction kd3 Medication: 01/22 22:47 VIS not applicable for this client. as6 Intake: 01/23 00:55 IV: 1000ml; Total: 1000ml. kd3 Outcome: 00:41 Discharge ordered by . rn 00:54 Discharged to home ambulatory. kd3 00:54 Condition: stable 00:54 Discharge instructions given to patient, family, Instructed on discharge instructions, follow up and referral plans. Demonstrated understanding of instructions, follow-up care. 00:55 Patient left the ED. kd3 Signatures: Harpreet Khan MD MD rn Wood, Tiffany tw5 Spencer Delgado RN RN as6 Beena Avitia RN RN kd3 Corrections: (The following items were deleted from the chart) 01/22 22:48 22:45 Acuity: MARLYS 4 as6 as6 23:57 23:36 Pulse 101bpm; Resp 18bpm; Pulse Ox 100%; tw5 tw5
[2023-01-23 02:15] VITALS: BP 137/93; TEMP 98.4; O2SAT 99
--- NOTE | 2023-01-23 14:32 | RAD REPORT ---
EXAM DESCRIPTION: CT - Head C Spine Mpr Wo Con - 01/23/2023 5:26 am CLINICAL HISTORY: The patient is 27 years old and is Male; head injury TECHNIQUE: Axial computed tomography images of the head/brain and cervical spine without intravenous contrast. Sagittal and coronal reformatted images were created and reviewed. This CT exam was pe rformed using one or more of the following dose reduction techniques: automated exposure control, a djustment of the mA and/or kV according to patient size, and/or use of iterative reconstruction techn ique. COMPARISON: No relevant prior studies available. FINDINGS: Brain: Arachnoid cyst in the posterior fossa. No hemorrhage. No significant white matter disease. Ventricles: Unremarkable. No ventriculomegaly. Skull: No acute fracture. Sinuses: Right maxillary sinus mucosal thickening. Ethmoid mucosal thickening. Mastoid air cells: Unremarkable as visualized. No mastoid effusion. Vertebrae: Unremarkable. No acute fracture. Normal alignment. Discs/spinal canal/neural foramina: No acute findings. No spinal canal stenosis. Soft tissues: Frontal scalp swelling. Thyroid: Slightly heterogeneous left thyroid. IMPRESSION: No acute intracranial abnormality. No acute findings in the cervical spine. Electronically signed by: Wil Atkinson MD 01/22/2023 11:41 PM IRRIGATION SERVICE TECHNICIAN Due to temporary technical issues with the PACS/Fluency reporting system, reports are being signed by the in house radiologists without review as a courtesy to insure prompt reporting. The interpreting radiologist is fully responsible for the content of the report.
--- NOTE | 2023-01-23 16:30 | EKG ---
Test Date: 2023-01-22 Test Time: 22:56:44 Opthalmic Tech: JAXSON MEASUREMENT RESULTS: Intervals: Rate: 74 NV: 134 QRSD: 88 QT: 370 QTc: 410 [place]: P: 64 NV: 134 QRS: 79 T: 51 INTERPRETIVE STATEMENTS: Normal sinus rhythm Normal ECG No previous ECG available for comparison Electronically Signed On 01-23-23 16:29:03 [employer] by Bakari Alejo
== END 2023-01-23 00:55 | disposition home or self-care (01) ==
LOC: ER 22:44
DX: F41.9 Anxiety disorder, unspecified (principal); R06.4 Hyperventilation; S09.90XA Unspecified injury of head, initial encounter
CPT/HCPCS: 36415; 70450; 72125; 80048; 85025; 93005; 96360; 96361; 99284; G0480; J7030

== ENCOUNTER 2023-04-15 12:24 | Emergency (ER) | payer SELFPAY ==
--- OUTSIDE RECORDS SUMMARY | 2023-04-15 12:27 | XMS REPORT | Continuity of Care Document ---
:1995 Author Organization [facility] t Address [address] [facility] [address] [place] [address] Care Team Providers Name Role Phone Unavailable Unavailable Unavailable Problems This patient has no known problems. Allergies, Adverse Reactions, Alerts This patient has no known allergies or adverse reactions. Medications This patient has no known medications. Procedures This patient has no known procedures. Encounters Start End Encounter Admission Attending Care Care Encounter Source Date/Time Date/Time Type Type Clinicians Facility Department ID 2023-02-24 2023-02-24 Outpatient SFA SFA [id number] [id number] [place] 15:46:33 15:46:33 [id number] F Marco Antonio 2023-02-11 2023-02-11 Outpatient SFA SFA [id number] [place] 15:55:48 15:55:48 [id number] F Marco Antonio 2023-02-10 2023-02-10 Outpatient SFA SFA [id number] [place] 13:15:13 13:15:13 [id number] F Marco Antonio 2022-12-13 2022-12-13 Outpatient SFA SFA [id number] [id number] [place] 09:47:23 09:47:23 0113 F Marco Antonio Results This patient has no known results.
[2023-04-15] MEDS ORDERED: IBUPROFEN 400 MG TAB ONE (12:45)
[2023-04-15] MEDS ORDERED: IBUPROFEN 200 MG TAB PO ONE (12:46)
--- NOTE | 2023-04-15 13:27 | RAD REPORT ---
EXAM DESCRIPTION: RAD - Femur Right - 04/15/2023 1:19 pm CLINICAL HISTORY: PAIN COMPARISON: <Comparisons> FINDINGS: No fracture or dislocation is seen.
--- NOTE | 2023-04-15 13:42 | ER ---
Nurse's Notes [facility] Name: Charlie Elena Age: 28 yrs Sex: Male : 1995 Arrival Date: 04/15/2023 Time: 12:24 Bed 10 Private MD: Diagnosis: Pain in right leg Presentation: 04/15 12:35 Chief complaint: Patient states: Right upper leg pain for 2 weeks. Getting worse, took de1 tylenol and rub an ointment with some relief. Coronavirus screen: Vaccine status: Patient reports being unvaccinated. Ebola Screen: Patient denies travel to an Ebola-affected area in the 21 days before illness onset. Initial Sepsis Screen: Does the patient meet any 2 criteria? No. Patient's initial sepsis screen is negative. Does the patient have a suspected source of infection? No. Patient's initial sepsis screen is negative. Risk Assessment: Do you want to hurt yourself or someone else? Patient reports no desire to harm self or others. Onset of symptoms was April 01, 2023. 12:35 Method Of Arrival: Ambulatory [facility] 12:35 Acuity: MARLYS 4 nj1 Triage Assessment: 04/14 13:30 General: Appears in no apparent distress. Behavior is calm, cooperative. iw Historical: - Allergies: 04/15 12:37 PENICILLINS; nj1 12:37 Promethazine; nj1 - PMHx: 12:37 Herniated disc; nj1 - PSHx: 12:37 Appendectomy; Elbow; nj1 - Immunization history:: Client reports having NOT received the Covid vaccine. - Social history:: Smoking status: Patient denies any tobacco usage or history of. Screenin/15 13:55 [facility] ED Fall Risk Assessment (Adult) History of falling in the last 3 months, iw including since admission. Abuse screen: Denies threats or abuse. Denies injuries from another. Nutritional screening: No deficits noted. Tuberculosis screening: No symptoms or risk factors identified. Assessment: 04/15 13:10 General: Appears in no apparent distress. Behavior is calm, cooperative. Pain: iw Complains of pain in right leg. Neuro: Level of Consciousness is awake, alert, obeys commands, Oriented to person, place, time, situation, Moves all extremities. Full function. Cardiovascular: Patient's skin is warm and dry. Respiratory: Respiratory effort is even, unlabored, Respiratory pattern is regular, symmetrical. Derm: Skin is intact, is healthy with good turgor. Vital Signs: 12:35 BP 127 / 80; Pulse 91; Resp 16; Temp 98.2(TE); Pulse Ox 98% ; Weight 72.57 kg; Height 5 nj1 ft. 7 in. ; Pain 6/10; 12:35 Body Mass Index 25.06 (72.57 kg, 170.18 cm) nj1 12:35 Pain Scale: Adult nj1 ED Course: 04/14 13:55 No provider procedures requiring assistance completed. Patient did not have IV access iw during this emergency room visit. 04/15 12:25 Patient arrived in ED. rg4 12:25 Lokesh Wood DO is Attending Physician. ms3 12:37 Triage completed. nj1 12:38 Arm band placed on right wrist. nj1 13:10 Patient has correct armband on for positive identification. iw 13:21 Femur Right XRAY In Process Unspecified. EDMS 13:42 Terrence Aguila MD is Referral Physician. ms3 13:56 Razia Castaneda, RN is Primary Nurse. iw Administered Medications: 12:40 Drug: Ibuprofen PO 600 mg Route: PO; nj1 12:50 Follow up: Response: No adverse reaction iw Medication: 12:45 VIS not applicable for this client. iw Outcome: 04/14 13:55 Discharged to home iw Condition: good Discharge instructions given to patient, Instructed on discharge instructions, follow up and referral plans. medication usage, Demonstrated understanding of instructions, follow-up care, medications, Prescriptions given X 1. 04/15 13:42 Discharge ordered by . ms3 13:56 Patient left the ED. iw Signatures: Dispatcher [employer] EDMS Razia Castaneda, RN RN Julissa Lopez rg4 Lokesh Wood DO DO ms3 Leesa Mccrary RN RN nj1
--- NOTE | 2023-04-15 13:43 | EDPHYS ---
Physician Documentation [facility] Name: Charlie Elena Age: 28 yrs Sex: Male : 1995 Arrival Date: 04/15/2023 Time: 12:24 Bed 10 Private MD: ED Physician Lokesh Wood HPI: 04/15 12:31 This 28 yrs old Male presents to ER via Unassigned with complaints of Leg Pain.ms3 12:31 28-year-old male with no past medical history presents for right leg pain. Patient ms3 states he was playing basketball when he took a knee to his right thigh. Patient states he has had continual pain since that time. Patient rates his pain a 6/10. Patient states pain is better when rubbing pain ointment on his leg. Patient states the pain is worse with walking. Historical: - Allergies: 12:37 PENICILLINS; nj1 12:37 Promethazine; nj1 - PMHx: 12:37 Herniated disc; nj1 - PSHx: 12:37 Appendectomy; Elbow; nj1 - Immunization history:: Client reports having NOT received the Covid vaccine. - Social history:: Smoking status: Patient denies any tobacco usage or history of. ROS: 12:31 Constitutional: Negative for fever, and chills. Neck: Negative for injury, pain, and ms3 swelling, Cardiovascular: Negative for chest pain, and palpitations. Respiratory: Negative for shortness of breath, cough, wheezing, and pleuritic chest pain, Abdomen/GI: Negative for abdominal pain, nausea, vomiting, diarrhea, and constipation. 12:31 MS/extremity: Positive for pain, Right thigh pain. 12:31 All other systems are negative. Exam: 12:31 Constitutional: This is a well developed, well nourished patient who is awake, alert, ms3 and in no acute distress. Head/Face: Normocephalic, atraumatic. Chest/axilla: Normal chest wall appearance and motion. Nontender with no deformity. Cardiovascular: Regular rate and rhythm with a normal S1 and S2. No gallops, murmurs, or rubs. Normal PMI, no JVD. No pulse deficits. Respiratory: Lungs have equal breath sounds bilaterally, clear to auscultation and percussion. No rales, rhonchi or wheezes noted. No increased work of breathing, no retractions or nasal flaring. Abdomen/GI: Soft, non-tender, with normal bowel sounds. No distension or tympany. No guarding or rebound. No evidence of tenderness throughout. 12:31 Musculoskeletal/extremity: Extremities: noted in the right leg: pain, tenderness, There is no evidence of deformity, ecchymosis, swelling. Vital Signs: 12:35 BP 127 / 80; Pulse 91; Resp 16; Temp 98.2(TE); Pulse Ox 98% ; Weight 72.57 kg; Height 5 nj1 ft. 7 in. ; Pain 6/10; 12:35 Body Mass Index 25.06 (72.57 kg, 170.18 cm) nj1 12:35 Pain Scale: Adult nj1 MDM: 12:31 Patient medically screened. ms3 12:31 Differential diagnosis: Contusion vs Hematoma vs Strain vs Fx. ms3 13:42 Data reviewed: vital signs, nurses notes, radiologic studies, and as a result, I will ms3 discharge patient. I considered the following discharge prescriptions or medication management in the emergency department Medications were administered in the Emergency Department. See MAR. Independent interpretation of the following test(s) in the Emergency Department X-Ray: My interpretation is Femur x-ray images reviewed by me do not show fracture. Counseling: I had a detailed discussion with the patient and/or guardian regarding: the historical points, exam findings, and any diagnostic results supporting the discharge/admit diagnosis, radiology results, the need for outpatient follow up, to return to the emergency department if symptoms worsen or persist or if there are any questions or concerns that arise at home. Response to treatment: the patient's symptoms have markedly improved after treatment, and as a result, I will discharge patient. Special discussion: I discussed with the patient/guardian in detail that at this point there is no indication for admission to the hospital. It is understood, however, that if the symptoms persist or worsen the patient needs to return immediately for re-evaluation. 04/15 12:31 Order name: Femur Right XRAY; Complete Time: 13:42 ms3 Administered Medications: 12:40 Drug: Ibuprofen PO 600 mg Route: PO; nj1 12:50 Follow up: Response: No adverse reaction iw Disposition Summary: 04/15/23 13:42 Discharge Ordered Location: Home ms3 Condition: Stable ms3 Diagnosis - Pain in right leg ms3 Followup: ms3 - With: Terrence Aguila MD - When: 2 - 3 days - Reason: Recheck today's complaints Discharge Instructions: - Discharge Summary Sheet ms3 - Musculoskeletal Pain ms3 Forms: - Medication Reconciliation Form ms3 - Thank You Letter ms3 - Antibiotic Education ms3 - Prescription Opioid Use ms3 Prescriptions: - Ibuprofen 600 mg Oral Tablet - take 1 tablet by ORAL route every 6 hours As needed take with food; 30 tablet; ms3 Refills: 0, Product Selection Permitted Signatures: Dispatcher [employer] EDMS Lokesh Wood DO DO ms3 Leesa Mccrary RN RN nj1 Razia Castaneda RN iw
[2023-04-15 14:34] VITALS: BP 127/80; TEMP 98.2; O2SAT 98
== END 2023-04-15 13:56 | disposition home or self-care (01) ==
LOC: ER 12:24
DX: M79.604 Pain in right leg (principal); Z88.0 Allergy status to penicillin; Z88.8 Allergy status to other drugs, medicaments and biological substances
CPT/HCPCS: 99283

== ENCOUNTER 2023-07-23 14:55 | Emergency (ER) | payer SELFPAY ==
--- OUTSIDE RECORDS SUMMARY | 2023-07-23 14:58 | XMS REPORT | Continuity of Care Document ---
:1995 Author Organization [facility] t Address [address] [address] Care Team Providers Name Role Phone Unavailable [...] Department ID 2023-02-24 2023-02-24 Outpatient SFA SFA [id number] 023 [place] 15:46:33 15:46:33 0327 F Marco Antonio 2023-02-11 2023-02-11 Outpatient SFA SFA [id number] [place] 15:55:48 15:55:48 0314 F Marco Antonio 2023-02-10 2023-02-10 Outpatient SFA SFA [id number] [place] 13:15:13 13:15:13 0313 F Marco Antonio 2022-12-13 2022-12-13 Outpatient SFA SFA [id number] [place] 09:47:23 09:47:23 0113 F Marco Antonio Results This patient has no known results.
[2023-07-23 15:43] LABS: SARS-CoV-2 Antigen Rapid Res Negative (Negative)
--- NOTE | 2023-07-23 15:55 | ER ---
Nurse's Notes [facility] Name: Charlie Elena Age: 28 yrs Sex: Male : 1995 Arrival Date: 07/23/2023 Time: 14:55 Bed 10 Private MD: Diagnosis: Acute upper respiratory infection, unspecified;Otitis media, unspecified, bilateral Presentation: 07/23 15:07 Chief complaint: Patient states: feeling bad since Friday , fever, pain in my ears iw and headache. Coronavirus screen: Client presents with at least one sign or symptom that may indicate coronavirus-19. Ebola Screen: Patient negative for fever greater than or equal to 101.5 degrees Fahrenheit, and additional compatible Ebola Virus Disease symptoms Patient denies exposure to infectious person. Patient denies travel to an Ebola-affected area in the 21 days before illness onset. No symptoms or risks identified at this time. Initial Sepsis Screen: Does the patient meet any 2 criteria? No. Patient's initial sepsis screen is negative. Does the patient have a suspected source of infection? No. Patient's initial sepsis screen is negative. Risk Assessment: Do you want to hurt yourself or someone else? Patient reports no desire to harm self or others. Onset of symptoms was July 20, 2023. 15:07 Method Of Arrival: Ambulatory iw 15:07 Acuity: MARLYS 4 iw Triage Assessment: 16:33 General: Appears in no apparent distress. comfortable, Behavior is calm, cooperative. cm10 Historical: - Allergies: 15:08 PENICILLINS; iw 15:08 Promethazine; iw - PMHx: 15:08 Herniated disc; iw - PSHx: 15:08 Appendectomy; Elbow; iw - Immunization history:: Client reports having NOT received the Covid vaccine. - Social history:: Smoking status: Patient denies any tobacco usage or history of. Screenin:21 [facility] ED Fall Risk Assessment (Adult) Score/Fall Risk Level 0 - 2 = Low Risk. Abuse iw screen: Denies threats or abuse. Denies injuries from another. Nutritional screening: No deficits noted. Tuberculosis screening: No symptoms or risk factors identified. Assessment: 15:20 General: Appears in no apparent distress. Behavior is calm, cooperative. General: iw Reports feeling ill for fatigue for. Pain: Complains of pain in right ear and left ear. Neuro: Level of Consciousness is awake, alert, obeys commands. Cardiovascular: Patient's skin is warm and dry. Respiratory: Respiratory effort is even, unlabored, Respiratory pattern is regular, symmetrical. EENT: Reports pain in right ear and left ear. Derm: Skin is intact, is healthy with good turgor. Musculoskeletal: Range of motion: intact in all extremities. Vital Signs: 15:07 BP 131 / 90; Pulse 73; Resp 16; Temp 97.9; Pulse Ox 99% on R/A; Weight 72.57 kg; Height iw 5 ft. 7 in. ; 15:07 Body Mass Index 25.06 (72.57 kg, 170.18 cm) iw ED Course: 14:58 Patient arrived in ED. mg5 15:02 Mariam Gomes PA-C is PHCP. sb4 15:02 Ti Shetty MD is Attending Physician. sb4 15:08 Triage completed. iw 15:08 Arm band placed on. iw 15:18 Flu Sent. iw 15:18 SARS RAPID Sent. iw 16:33 Patient has correct armband on for positive identification. Provided Education on: N/A. cm10 16:33 No provider procedures requiring assistance completed. Patient did not have IV access cm10 during this emergency room visit. Administered Medications: No medications were administered Medication: 15:21 VIS not applicable for this client. iw Outcome: 15:54 Discharge ordered by . sb4 16:33 Discharged to home ambulatory. cm10 16:33 Condition: good 16:33 Discharge instructions given to patient, Instructed on discharge instructions, follow up and referral plans. medication usage, Demonstrated understanding of instructions, follow-up care, medications, Prescriptions given X 3. 16:34 Patient left the ED. cm10 Signatures: Razia Castaneda, RN RN iw Mariam Gomes PA-C PA-C sb4 Melva Umana RN RN cm10 Megan Pruitt mg5
--- NOTE | 2023-07-23 15:55 | EDPHYS ---
Physician Documentation [facility] Name: Charlie Elena Age: 28 yrs Sex: Male : 1995 Arrival Date: 07/23/2023 Time: 14:55 Bed 10 Private MD: ED Physician Ti Shetty HPI: 07/23 15:49 This 28 yrs old Male presents to ER via Ambulatory with complaints of Cough, sb4 Ear Pain, Headache, General Weakness. 15:49 The patient or guardian reports cough, flu symptoms. sb4 15:49 Onset: The symptoms/episode began/occurred 4 day(s) ago. Modifying factors: The sb4 symptoms are alleviated by nothing, the symptoms are aggravated by nothing. Associated signs and symptoms: Pertinent positives: earache, rhinorrhea, Pertinent negatives: fever, sore throat, vomiting. The patient has not experienced similar symptoms in the past, but family has similar symptoms. . Historical: - Allergies: 15:08 PENICILLINS; iw 15:08 Promethazine; iw - PMHx: 15:08 Herniated disc; iw - PSHx: 15:08 Appendectomy; Elbow; iw - Immunization history:: Client reports having NOT received the Covid vaccine. - Social history:: Smoking status: Patient denies any tobacco usage or history of. ROS: 15:49 Cardiovascular: Negative for chest pain, palpitations, and edema. sb4 15:49 Constitutional: Positive for body aches, malaise. 15:49 ENT: Positive for ear pain, sinus congestion. 15:49 Respiratory: Positive for cough. 15:49 Neuro: Positive for headache. 15:49 All other systems are negative. Exam: 15:49 Constitutional: This is a well developed, well nourished patient who is awake, alert, sb4 and in no acute distress. Head/Face: Normocephalic, atraumatic. Eyes: Extra-ocular motions intact. Periorbital areas with no swelling, redness, or edema. Cardiovascular: Regular rate and rhythm with a normal S1 and S2. Respiratory: Lungs have equal breath sounds bilaterally, clear to auscultation and percussion. No rales, rhonchi or wheezes noted. No increased work of breathing, no retractions or nasal flaring. Abdomen/GI: Soft, non-tender, no distension. Skin: Warm, dry with normal turgor. Normal color with no rashes, no lesions, and no evidence of cellulitis. MS/ Extremity: Pulses equal, no cyanosis. Neurovascular intact. Full, normal range of motion. Neuro: Awake and alert, GCS 15, oriented to person, place, time, and situation. Cranial nerves II-XII grossly intact. Motor strength 5/5 in all extremities. Sensory grossly intact. Cerebellar exam normal. Normal gait. 15:49 ENT: Ear canal(s): erythema, that is moderate, bilaterally, TM's: erythema, fluid levels, bilaterally, Posterior pharynx: Airway: no evidence of obstruction, patent, Tonsils: are normal in appearance, no enlargement, no erythema, no exudate, no ulcerations. Vital Signs: 15:07 BP 131 / 90; Pulse 73; Resp 16; Temp 97.9; Pulse Ox 99% on R/A; Weight 72.57 kg; Height iw 5 ft. 7 in. ; 15:07 Body Mass Index 25.06 (72.57 kg, 170.18 cm) iw MDM: 15:03 Patient medically screened. sb4 15:49 Differential Diagnosis: Bronchitis Influenza Upper Respiratory Infection Sinusitis sb4 Pharyngitis Otitis Media Allergic Rhinitis Viral Syndrome. 15:53 Data reviewed: vital signs, nurses notes, lab test result(s), and as a result, I will sb4 discharge patient. Counseling: I had a detailed discussion with the patient and/or guardian regarding the historical points, exam findings, and any diagnostic results supporting the discharge/admit diagnosis, lab results, to return to the emergency department if symptoms worsen or persist or if there are any questions or concerns that arise at home. 07/23 15:12 Order name: SARS RAPID; Complete Time: 15:46 sb4 07/23 15:12 Order name: Flu; Complete Time: 15:53 sb4 Administered Medications: No medications were administered Disposition: 17:07 Co-signature as Attending Physician, Ti Shetty MD I reviewed the patient's care rt provided by the Advanced Practice Provider and agree with the diagnosis and treatment plan. Disposition Summary: 07/23/23 15:54 Discharge Ordered Location: Home sb4 Problem: new sb4 Symptoms: are unchanged sb4 Condition: Stable sb4 Diagnosis - Acute upper respiratory infection, unspecified sb4 - Otitis media, unspecified, bilateral sb4 Followup: sb4 - With: Private Physician - When: As needed - Reason: Recheck today's complaints, Continuance of care, Re-evaluation by your physician Discharge Instructions: - Discharge Summary Sheet sb4 - Otitis Media, Adult sb4 - Upper Respiratory Infection, Adult, [id number] sb4 Forms: - Medication Reconciliation Form sb4 - Thank You Letter sb4 - Antibiotic Education sb4 - Prescription Opioid Use sb4 - Patient Portal Instructions sb4 - Leadership Thank You Letter sb4 - Work release form cm10 Prescriptions: - cefdinir 300 mg Oral capsule - take 1 capsule by ORAL route every 12 hours for 10 days; 20 capsule; Refills: sb4 0, Product Selection Permitted - Tessalon Perles 100 mg Oral Capsule - take 1 capsule by ORAL route every 8 hours As needed; 15 capsule; Refills: 0, sb4 Product Selection Permitted - Medrol (Pastor) 4 mg Oral Tablets, Dose Pack - take 1 tablet by ORAL route as directed - follow package instructions; 1 sb4 packet; Refills: 0, Product Selection Permitted Signatures: Dispatcher [employer] Razia Rothman, RN Mariam Deutsch PAEstrada PA-C sb4 Ti Shetty MD MD rt
[2023-07-23 16:38] VITALS: BP 131/90; TEMP 97.9; O2SAT 99
== END 2023-07-23 16:34 | disposition home or self-care (01) ==
LOC: ER 14:55
DX: J06.9 Acute upper respiratory infection, unspecified (principal); H66.93 Otitis media, unspecified, bilateral; Z20.822 Contact with and (suspected) exposure to COVID-19; Z88.0 Allergy status to penicillin; Z88.8 Allergy status to other drugs, medicaments and biological substances
CPT/HCPCS: 36415; 87804; 87811

== ENCOUNTER 2023-11-11 03:53 | Emergency (ER) | payer SELFPAY ==
--- OUTSIDE RECORDS SUMMARY | 2023-11-11 03:55 | XMS REPORT | Continuity of Care Document ---
Author Name Unknown Address [address] [facility] [address] [place] [address] [facility] thconnect Address [address] [facility] [place] [address] Care Team Providers Care Chronometer Repairer Name Role Phone Unavailable Unavailable Unavailable Encounters Start Date/Time End Date/Time Encounter Type Admission Type Attending [facility] Facility Care Department Encounter ID Source 2023-02-24 15:46:33 2023-02-24 15:46:33 Outpatient SFA SFA [id number] Zachery Bernard 2023-02-11 15:55:48 2023-02-11 15:55:48 Outpatient SFA SFA [id number] Zachery Bernard 2023-02-10 13:15:13 2023-02-10 13:15:13 Outpatient SFA SFA [id number] Zachery Bernard 2022-12-13 09:47:23 2022-12-13 09:47:23 Outpatient SFA SFA [id number] Zachery Bernard
[2023-11-11] MEDS ORDERED: MORPHINE 4 MG/ML SYR ONE (05:03)
[2023-11-11] MEDS ORDERED: ETOMIDATE 20 MG/10 ML VIAL IV ONE (05:03)
[2023-11-11] MEDS ORDERED: ONDANSETRON 4 MG/2 ML VIAL ONE (05:03)
--- NOTE | 2023-11-11 05:09 | ER ---
Nurse's Notes [facility] Name: Charlie Elena Age: 28 yrs Sex: Male : 1995 Arrival Date: 11/11/2023 Time: 03:53 Bed 9 Private MD: Diagnosis: Foreign body in left ear Presentation: 11/11 03:58 Chief complaint: Patient states: woke up with left ear pain reports feels like bug that kl is moving around in ear. Coronavirus screen: Vaccine status: Patient reports being unvaccinated. Ebola Screen: Patient negative for fever greater than or equal to 101.5 degrees Fahrenheit, and additional compatible Ebola Virus Disease symptoms. Initial Sepsis Screen: Does the patient meet any 2 criteria? No. Patient's initial sepsis screen is negative. Does the patient have a suspected source of infection? No. Patient's initial sepsis screen is negative. Risk Assessment: Do you want to hurt yourself or someone else? Patient reports no desire to harm self or others. Onset of symptoms was November 11, 2023 at 03:35. 03:58 Method Of Arrival: Ambulatory 03:58 Acuity: MARLYS 4 kl Triage Assessment: 04:00 General: Appears distressed, uncomfortable, Behavior is anxious, restless. Pain: kl Complains of pain in left ear Pain currently is 10 out of 10 on a pain scale. EENT: Reports pain in left ear. 04:01 Neuro: No deficits noted. Cardiovascular: No deficits noted. Respiratory: No deficits kl noted. GI: No deficits noted. No signs and/or symptoms were reported involving the gastrointestinal system. : No deficits noted. No signs and/or symptoms were reported regarding the genitourinary system. Derm: No deficits noted. No signs and/or symptoms reported regarding the dermatologic system. Musculoskeletal: No deficits noted. No signs and/or symptoms reported regarding the musculoskeletal system. Historical: - Allergies: 04:00 PENICILLINS; kl 04:00 Promethazine; kl - Home Meds: 04:00 None [Active]; kl - PMHx: 04:00 Herniated disc; kl - PSHx: 04:00 Appendectomy; Elbow; kl - Immunization history:: Adult Immunizations not immunized. - Social history:: Smoking status: Patient denies any tobacco usage or history of. - Family history:: not pertinent. Screenin:02 [facility] ED Fall Risk Assessment (Adult) History of falling in the last 3 months, kl including since admission No falls in past 3 months (0 pts) Confusion or Disorientation No (0 pts) Intoxicated or Sedated No (0 pts) Impaired Gait No (0 pts) Mobility Assist Device Used No (0 pt) Altered Elimination No (0 pt) Score/Fall Risk Level 0 - 2 = Low Risk Oriented to surroundings, Maintained a safe environment. Abuse screen: Denies threats or abuse. Nutritional screening: No deficits noted. Tuberculosis screening: No symptoms or risk factors identified. Assessment: 04:02 Reassessment: see triage. kl 05:42 Reassessment: Patient appears in no apparent distress at this time. Patient and/or jb4 family updated on plan of care and expected duration. Pain level reassessed. Patient is alert, oriented x 3, equal unlabored respirations, skin warm/dry/pink. Vital Signs: 03:58 BP 159 / 115; Pulse 92; Resp 16; Temp 97(TE); Pulse Ox 100% ; Weight 74.84 kg; Height 5 kl ft. 7 in. ; Pain 10/10; 05:42 BP 156 / 97; Pulse 76; Resp 16; Pulse Ox 97% on R/A; jb4 03:58 Body Mass Index 25.84 (74.84 kg, 170.18 cm) kl 03:58 Pain Scale: Adult ED Course: 03:54 Patient arrived in ED. jj6 04:00 Triage completed. kl 04:02 Patient has correct armband on for positive identification. kl 04:28 Jeremy Rosales MD is Attending Physician. sp4 05:08 Esthela Haddad MD is Referral Physician. sp4 05:42 No provider procedures requiring assistance completed. IV discontinued, intact, jb4 bleeding controlled, No redness/swelling at site. Pressure dressing applied. Administered Medications: 04:45 Drug: morphine IVP or IV 4 mg IVP once over 4 mins Route: IVP; Infused Over: 4 mins; jb4 Site: right antecubital; 04:45 Drug: Ondansetron IVP 4 mg IVP once; over 2 minutes Route: IVP; Site: right antecubital;jb4 04:56 Drug: Etomidate IVP 20 mg IVP once Route: IVP; Site: right antecubital; jb4 05:41 Drug: Cephalexin PO 500 mg PO once Route: PO; jb4 05:41 Drug: Ibuprofen PO 800 mg PO once Route: PO; jb4 Medication: 04:02 VIS not applicable for this client. shaquille Outcome: 05:08 Discharge ordered by . sp4 05:42 Discharged to home ambulatory, jb4 05:42 Condition: stable 05:42 Discharge instructions given to patient, Instructed on discharge instructions, follow up and referral plans. medication usage, Demonstrated understanding of instructions, follow-up care, medications, Prescriptions given X 2, 05:43 Patient left the ED. jb4 Signatures: June Madison RN RN kl Bryson, James, RN RN jb4 Carmen Holder6 Jeremy Rosales MD MD sp4
--- NOTE | 2023-11-11 05:09 | EDPHYS ---
Physician Documentation [facility] Name: Charlie Elena Age: 28 yrs Sex: Male : 1995 Arrival Date: 11/11/2023 Time: 03:53 Bed 9 Private MD: ED Physician Jeremy Rosales HPI: 11/11 04:36 This 28 yrs old Male presents to ER via Ambulatory with complaints of Foreign sp4 Body In Ear. 04:37 Patient presents with acute sensation of foreign object in the left ear. Patient states sp4 he has got moderate to severe pain he is acutely agitated on arrival and is very restless. On initial exam patient has a mclean present in the left ear canal. . Historical: - Allergies: 04:00 PENICILLINS; kl 04:00 Promethazine; kl - Home Meds: 04:00 None [Active]; kl - PMHx: 04:00 Herniated disc; kl - PSHx: 04:00 Appendectomy; Elbow; kl - Immunization history:: Adult Immunizations not immunized. - Social history:: Smoking status: Patient denies any tobacco usage or history of. - Family history:: not pertinent. ROS: 04:37 Constitutional: Negative for fever, chills, and weight loss, ENT: Positive for foreign sp4 body in the left ear canal, positive left ear pain 04:37 All other systems are negative, Exam: 04:37 Constitutional: This is a well developed, well nourished patient who is awake, alert, sp4 patient is anxious, restless, agitated. Head/Face: Normocephalic, atraumatic. Eyes: Pupils equal round and reactive to light, extra-ocular motions intact. Lids and lashes normal. Conjunctiva and sclera are not injected. Cornea within normal limits. Periorbital areas with no swelling, redness, or edema. ENT: Nares patent. No nasal discharge, no septal abnormalities noted. Oropharynx with no redness, swelling, or masses, exudates, or evidence of obstruction, uvula midline. Mucous membranes moist. Left ear canal has some degree of wax occlusion also with see a visible small cockroach lodged in the left ear canal. Neck: Trachea midline, no thyromegaly or masses palpated, and no cervical lymphadenopathy. Supple, full range of motion without nuchal rigidity, or vertebral point tenderness. Chest/axilla: Normal chest wall appearance and motion. Nontender with no deformity. No lesions are appreciated. Cardiovascular: Regular rate and rhythm with a normal S1 and S2. No gallops, murmurs, or rubs. Normal PMI, no JVD. No pulse deficits. Respiratory: Lungs have equal breath sounds bilaterally, clear to auscultation and percussion. No rales, rhonchi or wheezes noted. No increased work of breathing, no retractions or nasal flaring. Abdomen/GI: Soft, non-tender, with normal bowel sounds. No distension or tympany. No guarding or rebound. No evidence of tenderness throughout. Back: No spinal tenderness. No costovertebral tenderness. Skin: Warm, dry with normal turgor. Normal color with no rashes, no lesions, and no evidence of cellulitis. MS/ Extremity: Pulses equal, no cyanosis. Neurovascular intact. Full, normal range of motion. Neuro: Awake and alert, GCS 15, oriented to person, place, time, and situation. Cranial nerves II-XII grossly intact. Motor strength 5/5 in all extremities. Sensory grossly intact. Vital Signs: 03:58 BP 159 / 115; Pulse 92; Resp 16; Temp 97(TE); Pulse Ox 100% ; Weight 74.84 kg; Height 5 kl ft. 7 in. ; Pain 10/10; 05:42 BP 156 / 97; Pulse 76; Resp 16; Pulse Ox 97% on R/A; jb4 03:58 Body Mass Index 25.84 (74.84 kg, 170.18 cm) kl 03:58 Pain Scale: Adult kl Procedures: 05:05 Foreign Body Removal: Small cockroach in the left ear canal, from the left ear canal, sp4 by using alligator clamps, The patient tolerated the removal well, Initially attempted to extract without sedation patient would not cooperate. Small cockroach was extracted out of the left ear canal with moderate sedation. . Moderate sedation: Pre-procedure assessment: the patient has been NPO 4 hour(s) prior to arrival, ASA physical classification: I - healthy, no underlying organic disease, Airway assessment: able to hyperextend neck, able to maintain airway, can open mouth without difficulty, Mallampati classification of tongue size: I - faucial pillars, soft palate, and uvula can be fully visualized, Monitoring during procedure: vehicle monitor technician, continuous pulse oximetry, nurse at bedside at all times, Medications employed: Etomidate, 20 mg(s), Sedation performed to extract foreign body out of the left ear canal -foreign body successful extraction small cockroach, Post-procedure assessment: the patient is moderately sedated, Respiratory status: requires supplemental oxygen to maintain acceptable oxygen saturation, a reversal agent was not used, Tolerated without complications. MDM: 05:04 Patient medically screened. sp4 05:05 Differential Diagnosis altered mental status, sepsis, flu. Data reviewed: vital signs, sp4 nurses notes. ED course: Cockroach from the left ear canal was extracted. Patient had some mild bleeding from the left ear canal. Patient will be prescribed ibuprofen and cephalexin for infection prevention . 11/11 04:37 Order name: Saline Lock; Complete Time: 05:03 sp4 11/11 04:37 Order name: Moderate Sedation; Complete Time: 05:03 sp4 Administered Medications: 04:45 Drug: morphine IVP or IV 4 mg IVP once over 4 mins Route: IVP; Infused Over: 4 mins; jb4 Site: right antecubital; 04:45 Drug: Ondansetron IVP 4 mg IVP once; over 2 minutes Route: IVP; Site: right antecubital;jb4 04:56 Drug: Etomidate IVP 20 mg IVP once Route: IVP; Site: right antecubital; jb4 05:41 Drug: Cephalexin PO 500 mg PO once Route: PO; jb4 05:41 Drug: Ibuprofen PO 800 mg PO once Route: PO; jb4 Disposition Summary: 11/11/23 05:08 Discharge Ordered Notes: Location: Home sp4 Problem: new sp4 Symptoms: have improved sp4 Condition: Stable sp4 Diagnosis - Foreign body in left ear sp4 Followup: sp4 - With: Esthela Haddad MD - When: 5 - 6 days - Reason: Recheck today's complaints Discharge Instructions: - Discharge Summary Sheet sp4 - Ear Foreign Body, Txum-ih-[id number] sp4 Forms: - Patient Portal Instructions sp4 Prescriptions: - Cephalexin 500 mg Oral Capsule - take 1 capsule ORAL route every 12 hours for 10 days; 20 capsule; Refills: 0, sp4 Product Selection Permitted - Ibuprofen 800 mg Oral Tablet - take 1 tablet ORAL route every 8 hours As needed take with food; 30 tablet; sp4 Refills: 0, Product Selection Permitted Signatures: June Madison RN RN kl Juan Frazier RN RN jb4 Jeremy Rosales MD MD sp4
[2023-11-11] MEDS ORDERED: IBUPROFEN 400 MG TAB ONE (05:45)
[2023-11-11] MEDS ORDERED: CEPHALEXIN 250 MG CAP ONE (05:45)
[2023-11-11 05:47] VITALS: TEMP 97
[2023-11-11 05:49] VITALS: BP 156/97; O2SAT 97
== END 2023-11-11 05:43 | disposition home or self-care (01) ==
LOC: ER 03:53
PROC: 09C4XZZ Extirpation of Matter from Left External Auditory Canal, External Approach (ICD-10-PCS; principal; 2023-11-11)
DX: T16.2XXA Foreign body in left ear, initial encounter (principal)
CPT/HCPCS: 96374; 96375; 99284; J2405

== ENCOUNTER → 2024-01-22 | Emergency (ER) | payer SELFPAY ==
[~2024-01-22] MED LIST: CLINDAMYCIN 600MG/D5W 50 ML IV ONE; dexAMETHasone 10 MG/ML VIAL ONE
--- OUTSIDE RECORDS SUMMARY | 2024-01-22 10:58 | XMS REPORT | Continuity of Care Document ---
Author Name Unknown Address [address] [facility] [address] [place] [address] [facility] thconnect Address [address] [facility] [place] [address] Care Team Providers Care Senior Security Architect Name Role Phone Unavailable Unavailable Unavailable Encounters Start Date/Time End Date/Time Encounter Type Admission Type Attending [facility] Facility Care Department Encounter ID Source 2023-02-24 15:46:33 2023-02-24 15:46:33 Outpatient SFA SFA [id number] Zachery Bernard 2023-02-11 15:55:48 2023-02-11 15:55:48 Outpatient SFA SFA [id number] Zachery Bernard 2023-02-10 13:15:13 2023-02-10 13:15:13 Outpatient SFA SFA [id number] Zachery Bernard 2022-12-13 09:47:23 2022-12-13 09:47:23 Outpatient SFA SFA [id number] 0113 Zachery Bernard
--- NOTE | 2024-01-22 11:32 | EDPHYS ---
Physician Documentation [facility] Name: Charlie Elena Age: 28 yrs Sex: Male : 1995 Arrival Date: 01/22/2024 Time: 10:54 Bed DX4 Private MD: ED Physician Harpreet Khan HPI: 01/22 11:27 This 28 yrs old Male presents to ER via Unassigned with complaints of Sore rn Throat, Fever. 11:27 The patient presents with sore throat. The patient describes throat pain as raw. Onset: rn The symptoms/episode began/occurred 2 day(s) ago. Severity of symptoms: At their worst the symptoms were. 11:30 Modifying factors: The symptoms are alleviated by nothing, the symptoms are aggravated rn by swallowing. Associated signs and symptoms: Pertinent positives: fever, Pertinent negatives cough, rhinorrhea, shortness of breath. The patient has not experienced similar symptoms in the past. - Family history:: not pertinent. ROS: 11:30 Constitutional: Positive for fever ENT: Positive for sore throat Neck: Positive for rn right-sided neck pain Cardiovascular: Negative for chest pain, palpitations, and edema, Respiratory: Negative for shortness of breath, cough, wheezing, and pleuritic chest pain, Abdomen/GI: Negative for abdominal pain, nausea, vomiting, diarrhea, and constipation, Exam: 11:30 Constitutional: This is a well developed, well nourished patient who is awake, alert, rn and in no acute distress. ENT: Erythema of pharynx without evidence of peritonsillar abscess, no asymmetry, uvula midline. Mild tenderness of the bilateral cervical lymphadenopathy chains, no crepitus or overlying skin changes. No stridor present. Neck: No Meningismus. Vital Signs: 12:30 BP 119 / 86; Pulse 98; Resp 16; Pulse Ox 97% on R/A; iw MDM: 11:02 Patient medically screened. rn 11:30 Differential diagnosis: laryngitis, pharyngitis, tonsillitis, upper respiratory rn infection. Differential diagnosis: Lymphadenitis. Data reviewed: vital signs, nurses notes. Counseling: I had a detailed discussion with the patient and/or guardian regarding the historical points, exam findings, and any diagnostic results supporting the discharge/admit diagnosis, the need for outpatient follow up, to return to the emergency department if symptoms worsen or persist or if there are any questions or concerns that arise at home. Special discussion: I discussed with the patient/guardian in detail that at this point there is no indication for admission to the hospital. It is understood, however, that if the symptoms persist or worsen the patient needs to return immediately for re-evaluation. ED course: No evidence of peritonsillar abscess yet, strict return precautions given, antibiotics prescribed and steroid injection here as well as IM antibiotics given here.. Administered Medications: 12:04 Not Given (Physician Discretion): [id number] mg IM once iw 12:45 Drug: Clindamycin IVPB 600 mg IVPB once over 30 mins; (mix in 50 mL) Route: IVPB; iw Infused Over: 30 mins; Site: left forearm; 12:46 Drug: Dexamethasone IM 10 mg IM once {Note: given IV to MD WENCESLAO aware.} Route: IM; iw Site: Other; Disposition Summary: 01/22/24 11:32 Discharge Ordered Notes: Location: Home rn Problem: new rn Symptoms: have improved rn Condition: Stable rn Diagnosis - Acute pharyngitis, unspecified rn - Acute lymphadenitis of face, head and neck rn Followup: rn - With: Private Physician - When: As needed - Reason: Recheck today's complaints, Re-evaluation by your physician Discharge Instructions: - Discharge Summary Sheet rn - Pharyngitis rn - Sore Throat rn - Lymphadenopathy rn Forms: - Medication Reconciliation Form rn - Thank You Letter rn - Antibiotic airborne operations superintendent - Prescription Opioid Use rn - Patient Portal Instructions rn - Leadership Thank You Letter rn Prescriptions: - Augmentin 875-125 mg Oral Tablet - take 1 tablet ORAL route every 12 hours for 10 days; 20 tablet; Refills: 0, rn Product Selection Permitted - Clindamycin HCl 300 mg Oral Capsule - take 1 capsule ORAL route every 6 hours for 10 days; 40 capsule; Refills: 0, rn Product Selection Permitted Signatures: Razia Castaneda RN RN iw Harpreet Khan MD MD rn
--- NOTE | 2024-01-22 13:02 | ER ---
Nurse's Notes [facility] Name: Charlie Elena Age: 28 yrs Sex: Male : 1995 Arrival Date: 01/22/2024 Time: 10:54 Bed DX4 Private MD: Diagnosis: Acute pharyngitis, unspecified;Acute lymphadenitis of face, head and neck Presentation: 01/22 12:30 Chief complaint: Patient states: sore throat, fever X 1 week. Coronavirus screen: At iw this time, the client does not indicate any symptoms associated with coronavirus-19. Ebola Screen: Patient negative for fever greater than or equal to 101.5 degrees Fahrenheit, and additional compatible Ebola Virus Disease symptoms Patient denies exposure to infectious person. Patient denies travel to an Ebola-affected area in the 21 days before illness onset. No symptoms or risks identified at this time. Initial Sepsis Screen: Does the patient meet any 2 criteria? No. Patient's initial sepsis screen is negative. Does the patient have a suspected source of infection? No. Patient's initial sepsis screen is negative. Risk Assessment: Do you want to hurt yourself or someone else? Patient reports no desire to harm self or others. Onset of symptoms was January 15, 2024. 12:30 Method Of Arrival: Ambulatory iw 12:30 Acuity: MARLYS 3 iw - Family history:: not pertinent. Vital Signs: 12:30 BP 119 / 86; Pulse 98; Resp 16; Pulse Ox 97% on R/A; iw ED Course: 10:58 Patient arrived in ED. kj1 11:02 Harpreet Khan MD is Attending Physician. rn 11:36 Razia Castaneda RN is Primary Nurse. iw 12:31 Triage completed. iw 12:35 Inserted saline lock: 22 gauge in left forearm, using aseptic technique. Blood ds4 collected. Administered Medications: 12:04 Not Given (Physician Discretion): [id number] mg IM once iw 12:45 Drug: Clindamycin IVPB 600 mg IVPB once over 30 mins; (mix in 50 mL) Route: IVPB; iw Infused Over: 30 mins; Site: left forearm; 12:46 Drug: Dexamethasone IM 10 mg IM once {Note: given IV to MD WENCESLAO aware.} Route: IM; iw Site: Other; Outcome: 11:32 Discharge ordered by . erika 13:02 Patient left the ED. iw Signatures: Razia Castaneda RN RN iw Nieto, Roman, MD MD rn Swanson, Donovan ds4 Kristi Trinh kj1
[2024-01-22 13:06] VITALS: BP 119/86; O2SAT 97
== END ==
LOC: ER 10:54
DX: J02.9 Acute pharyngitis, unspecified (principal); L04.0 Acute lymphadenitis of face, head and neck
CPT/HCPCS: J1100

== ENCOUNTER 2024-03-15 08:41 | Emergency (ER) | payer SELFPAY ==
--- OUTSIDE RECORDS SUMMARY | 2024-03-15 08:44 | XMS REPORT | Continuity of Care Document ---
Author Name Unknown Address [address] [facility] [address] [place] [address] [facility] thconnect Address [address] 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
--- NOTE | 2024-03-15 09:00 | EDPHYS ---
Physician Documentation [facility] Name: Charlie Elena Age: 29 yrs Sex: Male : 1995 Arrival Date: 03/15/2024 Time: 08:41 Bed IW1 Private MD: ED Physician Harpreet Khan HPI: 03/15 08:56 This 29 yrs old Male presents to ER via Ambulatory with complaints of Flu rn Symptoms. 08:56 The patient or guardian reports cough, flu symptoms, low-grade fever, myalgias. Onset: rn The symptoms/episode began/occurred 2 day(s) ago. Severity of symptoms: At their worst the symptoms were mild, in the emergency department the symptoms are unchanged. Modifying factors: The symptoms are alleviated by nothing, the symptoms are aggravated by nothing. Associated signs and symptoms: Pertinent positives: earache, rhinorrhea, sore throat. The patient has experienced similar episodes in the past. Patient reports 2 days of flulike symptoms, reports right ear pain/sore throat/cough/nasal congestion and drainage. Now his kids are sick with similar symptoms. No shortness of breath.. Historical: - Allergies: 08:54 PENICILLINS; ll1 08:54 Promethazine; ll1 - PMHx: 08:54 Herniated disc; ll1 - PSHx: 08:54 Appendectomy; Elbow; ll1 - Immunization history:: Adult Immunizations up to date. - Infectious Disease History:: Denies. - Social history:: Smoking status: Patient denies any tobacco usage or history of. - Family history:: not pertinent. - Hospitalizations: : No recent hospitalization is reported. ROS: 08:56 Constitutional: Positive for subjective fever and chills ENT: Positive for right ear rn pain and sore throat. Neck: Negative for injury, pain, and swelling, Cardiovascular: Negative for chest pain, palpitations, and edema, Respiratory: Positive for cough, negative for shortness of breath Abdomen/GI: Negative for abdominal pain, nausea, vomiting, diarrhea, and constipation, MS/Extremity: Negative for injury and deformity, Skin: Negative for injury, rash, and discoloration, Neuro: Positive for generalized weakness Exam: 08:56 Constitutional: This is a well developed, well nourished patient who is awake, alert, rn and in no acute distress. Head/Face: Normocephalic, atraumatic. ENT: Right auditory canal normal without erythema or swelling, normal right tympanic membrane Cardiovascular: Regular rate and rhythm . No pulse deficits. Respiratory: No increased work of breathing, no retractions or nasal flaring. Vital Signs: 08:52 BP 143 / 91; Pulse 80; Resp 17; Temp 97.5; Pulse Ox 100% on R/A; Weight 74.84 kg; ll1 Height 5 ft. 7 in. ; Pain 6/10; 08:52 Body Mass Index 25.84 (74.84 kg, 170.18 cm) ll1 08:52 Pain Scale: Adult ll1 MDM: 08:44 Patient medically screened. rn 08:56 Differential Diagnosis: Influenza Upper Respiratory Infection Sinusitis Pharyngitis rn Viral Syndrome. Data reviewed: vital signs, nurses notes, and as a result, I will discharge patient. Counseling: I had a detailed discussion with the patient and/or guardian regarding the historical points, exam findings, and any diagnostic results supporting the discharge/admit diagnosis, the need for outpatient follow up, to return to the emergency department if symptoms worsen or persist or if there are any questions or concerns that arise at home. Special discussion: I discussed with the patient/guardian in detail that at this point there is no indication for admission to the hospital. It is understood, however, that if the symptoms persist or worsen the patient needs to return immediately for re-evaluation. Administered Medications: No medications were administered Disposition Summary: 03/15/24 08:59 Discharge Ordered Notes: Location: Home rn Problem: new rn Symptoms: are unchanged rn Condition: Stable rn Diagnosis - Acute upper respiratory infection, unspecified rn - Viral infection, unspecified rn Followup: rn - With: Private Physician - When: As needed - Reason: Recheck today's complaints, Re-evaluation by your physician Discharge Instructions: - Upper Respiratory Infection, Adult rn - Viral Respiratory Infection rn - Discharge Summary Sheet ll1 Forms: - Medication Reconciliation Form rn - Thank You Letter rn - Antibiotic rn community - Prescription Opioid Use rn - Patient Portal Instructions rn - Leadership Thank You Letter rn - Work release form ll1 Signatures: Harpreet Khan MD MD rn Lewis, Lynsay, RN RN 1
--- NOTE | 2024-03-15 09:00 | ER ---
Nurse's Notes [facility] Name: Charlie Elena Age: 29 yrs Sex: Male : 1995 Arrival Date: 03/15/2024 Time: 08:41 Bed IW1 Private MD: Diagnosis: Acute upper respiratory infection, unspecified;Viral infection, unspecified Presentation: 03/15 08:52 Chief complaint: Patient states: Cough, core throat, R ear pain started yesterday. No ll1 fever. Coronavirus screen: Client denies travel out of the [place] in the last 14 days. cough unrelated to allergies, fatigue, headache, sore throat. Ebola Screen: Patient denies travel to an Ebola-affected area in the 21 days before illness onset. Initial Sepsis Screen: Does the patient meet any 2 criteria? No. Patient's initial sepsis screen is negative. Does the patient have a suspected source of infection? No. Patient's initial sepsis screen is negative. Risk Assessment: Do you want to hurt yourself or someone else? Patient reports no desire to harm self or others. Onset of symptoms was March 14, 2024. 08:52 Method Of Arrival: Ambulatory ll1 08:52 Acuity: MARLYS 4 ll1 Triage Assessment: 08:54 General: Appears uncomfortable, Behavior is calm, cooperative, appropriate for age. ll1 General: Reports feeling ill for fatigue for. Pain: Complains of pain in right ear Pain currently is 6 out of 10 on a pain scale. Quality of pain is described as aching. EENT: Reports nasal congestion pain in right ear when swallowing. Neuro: Reports headache. Respiratory: Reports cough that is. Historical: - Allergies: 08:54 PENICILLINS; ll1 08:54 Promethazine; ll1 - PMHx: 08:54 Herniated disc; ll1 - PSHx: 08:54 Appendectomy; Elbow; ll1 - Immunization history:: Adult Immunizations up to date. - Infectious Disease History:: Denies. - Social history:: Smoking status: Patient denies any tobacco usage or history of. - Family history:: not pertinent. - Hospitalizations: : No recent hospitalization is reported. Screenin:04 [facility] ED Fall Risk Assessment (Adult) History of falling in the last 3 months, ll1 including since admission No falls in past 3 months (0 pts) Confusion or Disorientation No (0 pts) Intoxicated or Sedated No (0 pts) Impaired Gait No (0 pts) Mobility Assist Device Used No (0 pt) Altered Elimination No (0 pt) Score/Fall Risk Level 0 - 2 = Low Risk Maintained a safe environment, Hourly rounding (assess needs \T\ fall precautionary measures) done. Abuse screen: Denies threats or abuse. Nutritional screening: No deficits noted. Tuberculosis screening: No symptoms or risk factors identified. Vital Signs: 08:52 BP 143 / 91; Pulse 80; Resp 17; Temp 97.5; Pulse Ox 100% on R/A; Weight 74.84 kg; ll1 Height 5 ft. 7 in. ; Pain 6/10; 08:52 Body Mass Index 25.84 (74.84 kg, 170.18 cm) ll1 08:52 Pain Scale: Adult ll1 ED Course: 08:43 Patient arrived in ED. im 08:44 Harpreet Khan MD is Attending Physician. rn 08:54 Triage completed. ll1 08:54 Arm band placed on Patient placed in an exam room, on a stretcher. ll1 09:04 Patient has correct armband on for positive identification. Provided Education on: ll1 return to ED for worsening symptoms. 09:04 No provider procedures requiring assistance completed. Patient did not have IV access ll1 during this emergency room visit. Administered Medications: No medications were administered Medication: 09:05 VIS not applicable for this client. ll1 Outcome: 08:59 Discharge ordered by . rn 09:04 Discharged to home ambulatory, ll1 09:04 Condition: stable 09:04 Discharge instructions given to patient, Instructed on discharge instructions, follow up and referral plans. Demonstrated understanding of instructions, follow-up care, 09:05 Patient left the ED. ll1 Signatures: Harpreet Khan MD MD rn Lewis, Lynsay, RN RN 1 Dina Winters im
[2024-03-15 09:44] VITALS: BP 143/91; TEMP 97.5; O2SAT 100
== END 2024-03-15 09:05 | disposition home or self-care (01) ==
LOC: ER 08:41
DX: B34.9 Viral infection, unspecified (principal); J06.9 Acute upper respiratory infection, unspecified; Z88.0 Allergy status to penicillin; Z88.8 Allergy status to other drugs, medicaments and biological substances
CPT/HCPCS: 99282